=== PATIENT | female | born 1990 | race Caucasian/White ===

== ENCOUNTER 2016-08-02 11:05 | Emergency (ER) | payer BC ==
[2016-08-02 12:03] VITALS: BP 117/75
[2016-08-02 15:17] LABS: EBV Response YES
[2016-08-02 18:21] LABS: Hematocrit 40 % (35-47); Hemoglobin 13.2 g/dl (12.0-16.0); Mean Corpuscular HGB Conc 33 g/dl (31-36); Mean Corpuscular Hemoglobin 30 pg (27-31); Mean Corpuscular Volume 89 fL (80-97); Mean Platelet Volume 9 um3 (7.4-10.4); Red Blood Count 4.45 10^6/ul (4.0-5.4); Red Cell Distribution Width 12 % (10.5-15); White Blood Count 4.9 10^3/ul (3.5-10.8)
[2016-08-02 18:26] LABS: Manual Entry Verification MD; Mono Internal Control QC Line Present
[2016-08-02 18:39] LABS: Amylase 57 U/L (29-103); Anion Gap 8 mmol/L (2-11); Blood Urea Nitrogen 12 mg/dL (6-24); C Reactive Protein < 1.00 mg/L (< 5.00); CO2 Carbon Dioxide 25 mmol/L (22-32); Calcium 9.7 mg/dL (8.6-10.3); Chloride 105 mmol/L (101-111); EGFR African American 122.1 (>60); EGFR Non-African American 94.9 (>60); Glucose 91 mg/dL (70-100); Lipase 19 U/L (11.0-82.0); Potassium 4.2 mmol/L (3.5-5.0); Sodium 138 mmol/L (133-145)
[2016-08-02 19:42] LABS: Erythrocyte Sed Rate 9 mm/Hr (0-14)
[2016-08-04 15:50] LABS: EBV Capsid Ag IgG Ab Positive (Negative); EBV Capsid Ag IgM Ab Negative (Negative)
--- NOTE | 2016-08-10 14:58 | UC ---
shikha Santiago Timothy, scribed for Manuela Tineo DO on 08/02/16 at 1217 . FLU HPI - HPI Summary HPI Summary: Shefali Willson is a 25 yo female presenting to [facility] with 7/10 DE ANDA, nausea, vomiting 1x 07/31/16, diarrhea last night, 6/10 intermittent abd pain that can get up to an 8/10, fatigue, and mylagia with neck pain for the past two weeks, worse in the past week. She also c/o subjective fever, night diaphoresis, and poor sleep. Pt is able to tolerate fluids, but has some sore throat at night, which usually resolves through the day. She states that she has lost her appetite recently, but eating does not aggravate or alleviate her abd pain. She states she also feels as though she can't catch her breath sometimes. She also has noticed an increase in frequency of the feeling of needing to urinate, but no change in her actual urination. Pt states she has bipolar disorder, and states that she has had periodic manic episodes marked by increased energy throughout the course of her illness, followed by a crash of overwhelming fatigue. She denies cough, CP. She states that she normally gets sick around the time of her menstrual period, but this is worse than usual. Her MHx includes OCD, bipolar disorder, tobacco use. Her LNMP started 07/27/16. - History of Current Complaint Stated Complaint: NAUSEA HEADACHE FATIGUE Time Seen by Provider: 08/02/16 13:05 Hx Obtained From: Patient Hx Last Menstrual Period: 07/26/16 Onset/Duration: Gradual Onset, Lasting Days, Still Present Severity Currently: Moderate Severity Initially: Moderate Pain Intensity: 7 Pain Scale Used: 0-10 Numeric Associated Signs & Symptoms: Positive: Fever - subjective, Myalgia, Sore Throat , Headache, Diarrhea - Allergy/Home Medications Allergies/Adverse Reactions: Allergies Allergy/AdvReac Type Severity Reaction Status Date / Time No Known Allergies Allergy Verified 08/02/16 11:55 Home Medications: Home Medications Acetylcysteine (Nutrient) [Nac] 08/02/16 [History] PMH/Surg Hx/FS Hx/Imm Hx - Additional Past Medical History Additional PMH: PCOS Psychological History Of: Reports: Bipolar Disorder - OCD - Surgical History Surgical History: None - Family History Known Family History: Positive: Other - Hodgekin's lymphoma Negative: Cardiac Disease, Hypertension, Diabetes - Social History Alcohol Use: Occasionally Substance Use Type: None Smoking Status (MU): Light Every Day Tobacco Smoker Amount Used/How Often: 5 cig./day Have You Smoked in the Last Year: No Cessation Counseling: Patient Advised to Stop - Immunization History Most Recent Influenza Vaccination: 2011 Most Recent Tetanus Shot: UKN Most Recent Pneumonia Vaccination: NONE Review of Systems Constitutional: Fever - subjective, Fatigue, Other - poor sleep, periods of high "manic" energy Skin: Negative Eyes: Negative ENT: Sore Throat Respiratory: Shortness Of Breath Cardiovascular: Negative Gastrointestinal: Abdominal Pain, Vomiting - 1x, Diarrhea - 1x, Other - nasuea Genitourinary: Negative Motor: Negative Neurovascular: Negative Musculoskeletal: Myalgia Neurological: Headache Psychological: Negative All Other Systems Reviewed And Are Negative: Yes Physical Exam Triage Information Reviewed: Yes Appearance: No Pain Distress, Well-Nourished, Ill-Appearing Vital Signs: Initial Vital Signs Temp 98.5 F 08/02/16 11:56 Pulse 90 08/02/16 11:56 Resp 16 08/02/16 11:56 BP 117/75 08/02/16 11:56 Pulse Ox 100 08/02/16 11:56 Vital Signs Reviewed: Yes Eyes: Positive: Conjunctiva Clear. Negative: Discharge ENT: Positive: Hearing grossly normal. Negative: Muffled/hoarse voice Neck: Positive: Supple, Nontender Respiratory: Positive: Lungs clear, Normal breath sounds, No respiratory distress, No accessory muscle use Cardiovascular: Positive: RRR, No Murmur Abdomen Description: Positive: Soft. Negative: Nontender - diffuse, worse epigastric, Distended, Guarding Musculoskeletal Exam: Normal Neurological: Positive: Alert, Muscle Tone Normal Psychological Exam: Normal Psychological: Positive: Age Appropriate Behavior Skin Exam: Normal - warm, dry, normal color Re-Evaluation - Re-Evaluation First Eval Re-Evaluation Time: 14:17 Change: Unchanged Comment: Reviewed lab results with Pt. Pt is agreeable to current course of Tx. Flu Course/Dx - Course Course Of Treatment: Shefali Willson is a 25 yo female presenting to [facility] with 7/10 DE ANDA, nausea, diarrhea, fatigue, subjective fever, night diaphoresis, poor sleep, and mylagia for the past week. Recommended transfer to ed for eval of epigastric pain as pt on meds with pancreatitis as potential adverse effect. Pt will sign out AMA after having lab work drawn. Pt was counseled as to the risks of signing out AMA. - Differential Dx/Diagnosis Differential Diagnosis/HQI/PQRI: Other - uti, , pancreatitis Provider Diagnoses: epugastric pain Discharge - Discharge Plan Condition: Stable Disposition: ADMITTED TO [facility] Discharge Disposition Comment: sign out AMA Patient Education Materials: Fatigue (ED), Epigastric Pain (ED) Referrals: [facility] [Outside] Additional Instructions: YOU ARE LEAVING AGAINST MEDICAL ADVISE. WE HAVE RECOMMENDED TRANSFER TO THE ED FOR THOROUGH EVALUATION OF YOUR CHEST PAIN. YOU HAVE REFUSED. YOUR RISKS INCLUDE WORSENING PAIN, INFECTION, SEPSIS AND . IF YOU CHANGE YOUR MIND, YOU CAN STILL GO TO THE ED AT ANY TIME. PLEASE DONT HESITATE TO GO IF YOUR SYMPTOMS WORSEN OR NEW SYMPTOMS DEVELOP. Please follow up with the primary care physician provided regarding your visit to urgent care today. Return to urgent care or the emergency department with any new or recurring symptoms. The documentation as recorded by the shikha herrera Timothy accurately reflects the service I personally performed and the decisions made by , Manuela Tineo DO.
== END 2016-08-02 14:55 | disposition short-term general hospital (02) ==
LOC: UCEAST 11:05
DX: R10.13 Epigastric pain (principal); R50.9 Fever, unspecified; M79.1 Myalgia; J02.9 Acute pharyngitis, unspecified; R51 Headache; R19.7 Diarrhea, unspecified; F31.9 Bipolar disorder, unspecified; F42.9 Obsessive-compulsive disorder, unspecified; F17.210 Nicotine dependence, cigarettes, uncomplicated; Z32.02 Encounter for pregnancy test, result negative
CPT/HCPCS: 36415; 80048; 81003; 82150; 83690; 84702; 85025; 85652; 86140; 86308; 86618; 86664; 86665; 99212; G0463

== ENCOUNTER 2016-08-27 15:15 | Emergency (ER) | payer BC ==
[2016-08-27 15:24] VITALS: BP 118/61
--- NOTE | 2016-08-27 16:18 | UC ---
General HPI - HPI Summary HPI Summary: Started feeling poor about a month ago, feeling feverish with epigastric pain and fatigue. Blood tests 08/02/16 negative for current EBV/mono, Lyme; no derangement on CBC or CMP. Saw PCP for f/u and was rx omeprazole with relief of epigastric pain, but feels that her energy has not gotten better and still feels nausea without new vomiting. Fevers felt like they picked back up in the last week with general malaise, exhaustion, and joint aches. Has had a cough for "a while" and "it feels like I have lung pain in the front." Found small spot on R thigh that she noticed about a week ago, wonders if she was bitten by a tick. - History of Current Complaint Chief Complaint: Mohan Stated Complaint: BUG BITE Time Seen by Provider: 08/27/16 16:01 Hx Obtained From: Patient Onset/Duration: Gradual Onset, Lasting Weeks Timing: Constant Onset Severity: Mild Current Severity: Moderate Associated Signs & Symptoms: Positive: Cough, Chest Pain, Nausea, Vomiting - 1 month ago. Negative: Diarrhea, Dysuria, Melena - Allergy/Home Medications Allergies/Adverse Reactions: Allergies Allergy/AdvReac Type Severity Reaction Status Date / Time No Known Allergies Allergy Verified 08/02/16 11:55 Home Medications: Home Medications Omeprazole [Prilosec] 20 mg PO 08/27/16 [History] Zinc [Zinc Picolinate] 25 mg PO 08/27/16 [History] PMH/Surg Hx/FS Hx/Imm Hx Psychological History: Bipolar Disorder - Surgical History Surgical History: None - Family History Known Family History: Negative: Blood Disorder - Social History Occupation: Employed Full-time Alcohol Use: None Substance Use Type: None Smoking Status (MU): Light Every Day Tobacco Smoker Type: Cigarettes Amount Used/How Often: 5 cig./day Have You Smoked in the Last Year: No - Immunization History Most Recent Influenza Vaccination: 2011 Most Recent Tetanus Shot: UKN Most Recent Pneumonia Vaccination: NONE Review of Systems Constitutional: Fever, Chills, Fatigue Skin: Negative Eyes: Negative ENT: Negative Respiratory: Negative Cardiovascular: Negative Gastrointestinal: Vomiting Genitourinary: Negative Motor: Negative Neurovascular: Negative Musculoskeletal: Myalgia Neurological: Headache Psychological: Negative All Other Systems Reviewed And Are Negative: Yes Physical Exam Triage Information Reviewed: Yes Appearance: Well-Appearing, No Pain Distress, Well-Nourished Vital Signs: Initial Vital Signs Temp 101.5 F 08/27/16 15:19 Pulse 102 08/27/16 15:19 Resp 18 08/27/16 15:19 BP 118/61 08/27/16 15:19 Pulse Ox 100 08/27/16 15:19 Vital Signs Reviewed: Yes Eye Exam: Normal, Other - PERRL, EOM-I Eyes: Positive: Conjunctiva Clear ENT: Positive: Normal ENT inspection, Hearing grossly normal, Pharynx normal, TMs normal. Negative: Tonsillar swelling, Tonsillar exudate Dental Exam: Normal Neck exam: Normal Neck: Positive: Supple, Nontender, No Lymphadenopathy Respiratory Exam: Normal Respiratory: Positive: Chest non-tender, Lungs clear, Normal breath sounds, No respiratory distress, No accessory muscle use Cardiovascular: Positive: No Murmur, Tachycardia Abdominal Exam: Normal Abdomen Description: Positive: Nontender, No Organomegaly, Soft. Negative: CVA Tenderness (R), CVA Tenderness (L) Musculoskeletal Exam: Normal Musculoskeletal: Positive: Strength Intact, ROM Intact Neurological Exam: Normal Neurological: Positive: Alert Psychological Exam: Normal Skin Exam: Other - no redness or lesions noted Course/Dx - Differential Dx - Multi-Symptom Provider Diagnoses: fever. malaise Discharge - Discharge Plan Condition: Stable Disposition: HOME Patient Education Materials: Fever in Adults (ED) Referrals: Rose Galindo MD [Primary Care Provider] - 3 Days Additional Instructions: I have sent further lab work, but it is unclear what has been causing your symptoms. Try to monitor your temperature at home in order to look for patterns for when your fevers come and go. Please see your primary care provider this week to discuss further testing and possible treatment.
--- NOTE | 2016-08-27 17:06 | RAD ---
HISTORY: Fever, cough COMPARISONS: None VIEWS: 2: Frontal dual-energy and lateral views of the chest. FINDINGS: CARDIOMEDIASTINAL SILHOUETTE: The cardiomediastinal silhouette is normal. CLIFF: The cliff are normal. PLEURA: The costophrenic angles are sharp. No pleural abnormalities are noted. LUNG PARENCHYMA: The lungs are clear. ABDOMEN: The upper abdomen is clear. There is no subphrenic gas. BONES AND SOFT TISSUES: No bone or soft tissue abnormalities are noted. OTHER: None. IMPRESSION: NO ACTIVE CARDIOPULMONARY DISEASE.
== END 2016-08-27 17:35 | disposition home or self-care (01) ==
LOC: UCEAST 15:15
DX: R50.9 Fever, unspecified (principal); R53.83 Other fatigue; F17.210 Nicotine dependence, cigarettes, uncomplicated
CPT/HCPCS: 36415; 71020; 81003; 84702; 86618; 86803; 99211; G0463

== ENCOUNTER 2017-10-13 19:37 | Emergency (ER) | payer BC ==
[2017-10-13 19:47] VITALS: BP 102/60
--- NOTE | 2017-10-13 19:56 | UC ---
Skin Complaint HPI - HPI Summary HPI Summary: This is sharon Johnson Attshar documenting for attending Fnu MD Josef. Pt is a 26 y/o F presents to [facility] with concerns of left ear infection located on the L ear lobe. She uses guages in both her ears but started noticing redness and slight amount of discharge along with pain in the area locally . Assoc. Sx: redness, low-grade fever, ear drainage. Denies: CP. PMHx: Bipolar. She says that the lobe feels warm to the touch. Patient is year old , without any significant past medical history who present today with for past days. Denies any cough chest pain or shortness of breath . No diaphoresis. Denies any abdominal pain , nausea or vomiting , diarrhea or constipation. She has not tried any over the counter medication. - History of Current Complaint Chief Complaint: UCSkin Time Seen by Provider: 10/13/17 19:46 Stated Complaint: EAR LOBE INFLAMED Hx Obtained From: Patient Hx Last Menstrual Period: 07/27/16 Onset/Duration: Sudden Onset, Lasting Days, Still Present Timing: Constant Current Severity: Mild Pain Intensity: 3 Pain Scale Used: 0-10 Numeric Location: Ear (Left) - lobe Character: Swelling, Pain Associated Signs & Symptoms: Positive: Negative - CP, Fever - low grade, Drainage - puss, Tenderness. Negative: Chest Pain - Allergy/Home Medications Allergies/Adverse Reactions: Allergies Allergy/AdvReac Type Severity Reaction Status Date / Time No Known Allergies Allergy Verified 10/13/17 19:48 Home Medications: Home Medications [place] Carbonate [Lithobid] 900 mg PO 10/13/17 [History] QUEtiapine TAB* [Seroquel 100 MG *] 100 mg PO BEDTIME 10/13/17 [History Confirmed 10/13/17] Review of Systems Constitutional: Fever - low grade Skin: Rash - redness, skin discharge Eyes: Negative ENT: Negative, Ear Ache - L earlobe inflammation, Other Respiratory: Negative Cardiovascular: Negative - CP Gastrointestinal: Negative Genitourinary: Negative Motor: Negative Neurovascular: Negative Musculoskeletal: Negative Neurological: Negative Psychological: Negative Is Patient Immunocompromised?: No All Other Systems Reviewed And Are Negative: Yes PMH/Surg Hx/FS Hx/Imm Hx Previously Healthy: Yes Other Endocrine History: negative Other Cardiovascular History: Negative: CAD Other Respiratory History: negative Other GI/ History: negative Other Neurological History: negative Psychological History: Bipolar Disorder Other Psychological History: negative Other Cancer History: negative - Surgical History Surgical History: None - Family History Known Family History: Negative: Blood Disorder - Social History Occupation: Unemployed Lives: With Family Alcohol Use: None Substance Use Type: None Smoking Status (MU): Light Every Day Tobacco Smoker Type: Cigarettes Amount Used/How Often: 5 cig./day Have You Smoked in the Last Year: No - Immunization History Most Recent Influenza Vaccination: 2011 Most Recent Tetanus Shot: UKN Most Recent Pneumonia Vaccination: NONE Physical Exam - Summary Physical Exam Summary: Appearance: Well-Appearing, No Pain Distress, Well-Nourished Eyes: conjunctiva clear, no discharge ENT: Hearing grossly normal, no muffled/hoarse voice. L ear lobe is inflamed with honey-crusting at the site where the guage is kept in but no active discharge is noted. TM normal bilaterally. No pain with pressure on tragus or movement of pinna. Neck: Normal, Supple Respiratory/Lung Sounds: Lungs clear, Normal breath sounds, No respiratory distress, No accessory muscle use Cardiovascular: RRR, No murmur Abdomen: Nontender, Soft, no guarding, not distended Bowel Sounds: Present Musculoskeletal: Normal Neurological: Alert, muscle tone normal Psychiatric:Normal, age appropriate behavior Skin: Normal, Warm, Dry, Normal color Triage Information Reviewed: Yes Vital Signs: Initial Vital Signs Temp 99.4 F 10/13/17 19:41 Pulse 82 10/13/17 19:41 Resp 18 10/13/17 19:41 BP 102/60 10/13/17 19:41 Pulse Ox 100 10/13/17 19:41 Vital Signs Reviewed: Yes Course/Dx - Course Course Of Treatment: During the visit today, we discussed the findings and further plan. I will prescribe the medication to the pharmacy . Patient expressed understanding . - Diagnoses Provider Diagnoses: Impetigo Discharge - Sign-Out/Discharge Documenting (check all that apply): Patient Departure - Discharge Plan Condition: Stable Disposition: HOME Prescriptions: Cephalexin CAP* [Keflex CAP*] 500 mg PO TID 10 Days #30 cap Patient Education Materials: Impetigo (ED) Referrals: Rose Galindo MD [Primary Care Provider] - 7 Days Additional Instructions: Start taking the antibiotic . It has been prescribed to the pharmacy . Follow up with your primary care doctor in 1 week. Return to Urgent care / ER if symptoms get worse. - Billing Disposition and Condition Condition: STABLE Disposition: Home
[2017-10-13] MEDS ORDERED: Cephalexin CAP* 500 MG PO ONE (20:03)
== END 2017-10-13 20:19 | disposition home or self-care (01) ==
LOC: UCEAST 19:37
DX: L01.00 Impetigo, unspecified (principal); F17.210 Nicotine dependence, cigarettes, uncomplicated
CPT/HCPCS: 99212; A9270-GY; G0463

== ENCOUNTER 2018-02-20 18:01 | Emergency (ER) | payer BC ==
[2018-02-20 18:20] VITALS: BP 127/54
--- NOTE | 2018-02-20 19:15 | UC ---
Complaint Female HPI - HPI Summary HPI Summary: 27-year-old [facility] with a chief complaint of burning with urination and urinary hesitancy and frequency. This is been going on for about a week. She had been on control pills for a long time and she stopped that 2 weeks ago. She has some abnormal vaginal discharge and also some white plaques in her mouth since she stopped taking the pill. No fevers or chills no flank pain. She's been with same partner for 3 years she is not concerned about an STI. She has had yeast infections in the past and wonders if she may have a vaginal yeast infection and oral thrush. - History Of Current Complaint Chief Complaint: UCGU Stated Complaint: UTI Time Seen by Provider: 02/20/18 18:28 Hx Last Menstrual Period: 07/27/16 Pain Intensity: 3 - Allergies/Home Medications Allergies/Adverse Reactions: Allergies Allergy/AdvReac Type Severity Reaction Status Date / Time bruno Allergy Itching Verified 12/16/17 15:47 PMH/Surg Hx/FS Hx/Imm Hx Previously Healthy: Yes - Surgical History Surgical History: None Surgery Procedure, Year, and Place: DENIES - Family History Known Family History: Negative: Blood Disorder - Social History Alcohol Use: None Substance Use Type: None Smoking Status (MU): Light Every Day Tobacco Smoker Type: Cigarettes Amount Used/How Often: 5 cig./day Have You Smoked in the Last Year: No - Immunization History Most Recent Influenza Vaccination: 2011 Most Recent Tetanus Shot: UKN Most Recent Pneumonia Vaccination: NONE Review of Systems All Other Systems Reviewed And Are Negative: Yes Constitutional: Positive: Negative Skin: Positive: Negative Eyes: Positive: Negative ENT: Positive: Other - SEE HPI Respiratory: Positive: Negative Cardiovascular: Positive: Negative Gastrointestinal: Positive: Negative Genitourinary: Positive: Dysuria, Frequency, Urgency, Vaginal/Penile Discharge Motor: Positive: Negative Neurovascular: Positive: Negative Musculoskeletal: Positive: Negative Neurological: Positive: Negative Psychological: Positive: Negative Is Patient Immunocompromised?: No Physical Exam Triage Information Reviewed: Yes Appearance: Well-Appearing, No Pain Distress, Well-Nourished Vital Signs: Initial Vital Signs Temp 99.0 F 02/20/18 18:14 Pulse 99 02/20/18 18:14 Resp 18 02/20/18 18:14 BP 127/54 12/06/18 18:14 Pulse Ox 100 02/20/18 18:14 Vital Signs Reviewed: Yes Eye Exam: Normal Eyes: Positive: Conjunctiva Clear ENT: Positive: Pharynx normal, Other - WHITE [place]QUE ON TONGUE Neck exam: Normal Neck: Positive: Supple Respiratory: Positive: Lungs clear, Normal breath sounds, No respiratory distress Cardiovascular: Positive: RRR Abdomen Description: Positive: Soft, Other: - MILD SUPRAPUBIC TENDERNESS TO PALPATION. Negative: CVA Tenderness (R), CVA Tenderness (L) Musculoskeletal Exam: Normal Musculoskeletal: Positive: Strength Intact, ROM Intact Neurological Exam: Normal Neurological: Positive: Alert, Muscle Tone Normal Psychological Exam: Normal Psychological: Positive: Age Appropriate Behavior Skin Exam: Normal Complaint Female Dx - Course Course Of Treatment: We discussed the urine results. At this time we will treat for UTI with antibiotics. We'll also treat the role of thrush with nystatin. We'll also give a prescription for Diflucan to be used as needed for vaginal yeast. We discussed a pelvic exam for further evaluation and we decided on the above plan but she knows that if things get worse or she has any other concerns she needs to get rechecked. - Differential Dx/Diagnosis Provider Diagnosis: UTI (urinary tract infection), Thrush, oral Discharge - Sign-Out/Discharge Documenting (check all that apply): Patient Departure All imaging exams completed and their final reports reviewed: No Studies - Discharge Plan Condition: Stable Disposition: HOME Prescriptions: Fluconazole 150 MG TAB* [Diflucan 150 MG TAB*] 150 mg PO ONCE #2 tablet Nystatin SUSPENSION ORAL SYR* 500,000 units PO QID #200 ml Sulfamethox/Trimethoprim DS* [Bactrim DS 800/160 TAB*] 1 tab PO BID #14 tab Patient Education Materials: Urinary Tract Infection in Women (ED), Oral Candidiasis (ED) Referrals: Rose Galindo MD [Primary Care Provider] - Additional Instructions: FOLLOW UP WITH YOUR DOCTOR IF NOT COMPLETELY IMPROVED. GET RECHECKED FOR ANY WORSENING OF YOUR CONDITION OR QUESTIONS OR CONCERNS. - Billing Disposition and Condition Condition: STABLE Disposition: Home
--- NOTE | 2018-02-22 14:57 | UC ---
- Progress Note Progress Note: 02/22/2018 Urine culture positive for E. Coli. Pt Rx Bactrim PO which it covers for it. Culture sensitivity still pending. Elizabeth Rivera PA-C Course/Dx - Diagnoses Provider Diagnoses: UTI (urinary tract infection), Thrush, oral Discharge - Sign-Out/Discharge Documenting (check all that apply): Patient Departure - D/C home All imaging exams completed and their final reports reviewed: No Studies - Discharge Plan Condition: Stable Disposition: HOME Prescriptions: Fluconazole 150 MG TAB* [Diflucan 150 MG TAB*] 150 mg PO ONCE #2 tablet Nystatin SUSPENSION ORAL SYR* 500,000 units PO QID #200 ml Sulfamethox/Trimethoprim DS* [Bactrim DS 800/160 TAB*] 1 tab PO BID #14 tab Patient Education Materials: Urinary Tract Infection in Women (ED), Oral Candidiasis (ED) Referrals: Rose Galindo MD [Primary Care Provider] - Additional Instructions: FOLLOW UP WITH YOUR DOCTOR IF NOT COMPLETELY IMPROVED. GET RECHECKED FOR ANY WORSENING OF YOUR CONDITION OR QUESTIONS OR CONCERNS. - Billing Disposition and Condition Condition: STABLE Disposition: Home
== END 2018-02-20 19:30 | disposition home or self-care (01) ==
LOC: UCEAST 18:01
DX: N39.0 Urinary tract infection, site not specified (principal); B96.20 Unspecified Escherichia coli [E. coli] as the cause of diseases classified elsewhere; B37.0 Candidal stomatitis; F17.210 Nicotine dependence, cigarettes, uncomplicated
CPT/HCPCS: 81003; 84702; 87077; 87086; 87186; 99202; G0463

== ENCOUNTER 2018-03-08 14:55 | Emergency (ER) | payer BC ==
[2018-03-08 15:06] VITALS: BP 123/78
--- NOTE | 2018-03-08 15:18 | UC ---
FLU HPI - HPI Summary HPI Summary: 27-year-old female presents with one-week history of subjective fever, general malaise, body aches, nasal congestion, nasal drainage, sore throat, and cough. Associated with some mild nausea. Denies ear pain, dysphagia, chest pain, shortness of breath, abdominal pain, vomiting, or diarrhea. - History of Current Complaint Chief Complaint: UCRespiratory Stated Complaint: STUFFY NOSE FEVER ACHES Time Seen by Provider: 03/08/18 14:58 Hx Last Menstrual Period: December 2017 Pain Intensity: 6 - Allergy/Home Medications Allergies/Adverse Reactions: Allergies Allergy/AdvReac Type Severity Reaction Status Date / Time bruno Allergy Itching Verified 03/08/18 15:07 PMH/Surg Hx/FS Hx/Imm Hx Previously Healthy: Yes Psychological History: Bipolar Disorder - Surgical History Surgical History: None Surgery Procedure, Year, and Place: DENIES - Family History Known Family History: Negative: Blood Disorder - Social History Occupation: Employed Full-time Lives: Alone Alcohol Use: None Substance Use Type: Prescribed Smoking Status (MU): Light Every Day Tobacco Smoker Type: Cigarettes Amount Used/How Often: 5 cig./day Have You Smoked in the Last Year: No - Immunization History Most Recent Influenza Vaccination: 2011 Most Recent Tetanus Shot: [facility] Most Recent Pneumonia Vaccination: NONE Review of Systems All Other Systems Reviewed And Are Negative: Yes Constitutional: Positive: Fever, Fatigue Skin: Negative: Rash Eyes: Negative: Drainage, Eye Redness ENT: Positive: Sore Throat, Nasal Discharge, Sinus Congestion. Negative: Ear Ache, Sinus Pain/Tenderness Respiratory: Positive: Cough. Negative: Shortness Of Breath Cardiovascular: Negative: Palpitations, Chest Pain Gastrointestinal: Positive: Nausea. Negative: Abdominal Pain, Vomiting, Diarrhea Is Patient Immunocompromised?: No Physical Exam - Summary Physical Exam Summary: GENERAL APPEARANCE: Well developed, well nourished, alert and cooperative, and appears to be in no acute distress. EYES: Conjunctiva clear. No drainage. Vision is grossly intact. EARS: External auditory canals and tympanic membranes clear, hearing grossly intact. NOSE: Mild-moderate nasal congestion with mild mucosal erythema and edema. No nasal discharge. THROAT: Mild pharyngeal erythema with cobblestoning. Tonsils 1+ without swelling, exudate, or lesions. Oral cavity normal. Teeth and gingiva in good general condition. NECK: Neck supple, non-tender. Mild anterior cervical lymphadenopathy. CARDIAC: Normal S1 and S2. No S3, S4 or murmurs. Rhythm is regular. There is no peripheral edema, cyanosis or pallor. Extremities are warm and well perfused. Capillary refill is less than 2 seconds. LUNGS: Clear to auscultation and percussion without rales, rhonchi, wheezing or diminished breath sounds. ABDOMEN: Positive bowel sounds. Soft, nondistended, nontender. No guarding or rebound. No masses or hepatosplenomegally. MUSKULOSKELETAL: ROM intact to all extremities. No joint erythema or tenderness. Normal muscular development. Normal gait. SKIN: Skin normal color, texture and turgor with no lesions or eruptions. Triage Information Reviewed: Yes Vital Signs: Initial Vital Signs Temp 98.5 F 03/08/18 15:03 Pulse 91 03/08/18 15:03 Resp 18 03/08/18 15:03 BP 123/78 03/08/18 15:03 Pulse Ox 98 03/08/18 15:03 Vital Signs Reviewed: Yes Diagnostics - Laboratory Diagnostic Studies Completed/Ordered: Rapid flu negative Flu Course/Dx - Course Course Of Treatment: 27-year-old female presents with one-week history of subjective fever, general malaise, body aches, nasal congestion, nasal drainage , sore throat, and cough. Associated with some mild nausea. Denies ear pain, dysphagia, chest pain, shortness of breath, abdominal pain, vomiting, or diarrhea. Afebrile. Vital signs stable. Exam revealed some nasal congestion with mild mucosal erythema and edema, pharyngeal erythema with cobblestoning, no tonsillar swelling or exudate. Rapid influenza was negative. Recommend symptomatic treatment for upper respiratory infection. She is to follow-up with primary care provider in 7 days if symptoms persist. Warning symptoms were reviewed with the patient. Verbalizes understanding and agrees with plan of care. - Differential Dx/Diagnosis Differential Diagnosis/HQI/PQRI: Bronchitis, Influenza, Upper Respiratory Infection Provider Diagnosis: URI (upper respiratory infection) Discharge - Sign-Out/Discharge Documenting (check all that apply): Patient Departure All imaging exams completed and their final reports reviewed: No Studies - Discharge Plan Condition: Stable Disposition: HOME Prescriptions: Fluticasone NASAL SPRAY 50MCG* [Flonase NASAL SPRAY 50MCG*] 2 spray BOTH NARES DAILY #1 btl Patient Education Materials: Upper Respiratory Infection (ED) Referrals: Rose Galindo MD [Primary Care Provider] - 7 Days (If symptoms persist) Additional Instructions: Your history and exam are consistent with a viral upper respiratory infection. Viral infections do not respond to antibiotics and are limited to the treatment of symptoms. Viral infections typically run their course in 10-14 days. Get plenty of rest. Drink plenty of fluids to avoid dehydration especially if you are running any fever. Use a saline rinse kit such as Neti Pot or NeilMed at least twice a day to help thin secretions and promote drainage of the sinuses. Use fluticasone (Flonase) nasal spray 2 sprays each nostril once daily. Take over the counter acetaminophen (Tylenol) or ibuprofen (Advil, Motrin) according to directions as needed for pain or fever. Use an over the counter decongestant such as Sudafed according to directions for the nasal congestion. Use salt water gargles several times a day if you have a sore throat. You may also use Chloraseptic spray or Cepacol lonzenges according to directions which contain a numbing medication and can provide some temporary relief from your sore throat. Follow up with your primary care provider in 7 days if symptoms persist. Seek immediate medical attention in the emergency room if you have fever greater than 100.5 F despite taking acetaminophen or ibuprofen, have chest pain , difficulty breathing, are unable to swallow, or have any worsening of symptoms. - Billing Disposition and Condition Condition: STABLE Disposition: Home - Attestation Statements Provider Attestation: I was available for consult. This patient was seen by the AAYUSH. The patient was not presented to , seen by or examined by vt -Rufus Bahena MD
== END 2018-03-08 15:40 | disposition home or self-care (01) ==
LOC: UCEAST 14:55
DX: J06.9 Acute upper respiratory infection, unspecified (principal); F17.210 Nicotine dependence, cigarettes, uncomplicated; Z91.018 Allergy to other foods
CPT/HCPCS: 99212; G0463

== ENCOUNTER 2018-05-29 16:26 | Emergency (ER) | payer BC ==
--- OUTSIDE RECORDS SUMMARY | 2018-05-29 16:31 | XMS REPORT | Continuity of Care Document ---
:1990 External Reference #:[id number] Author Name Bnony Nicole, ALICIA Address [address] [facility] [place] [address] Care Team Providers Name Role Phone Rose Galindo M.D. 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 Primary Care Physician Unavailable Payers Date Identification Numbers Payment Provider Subscriber Effective: Policy Number: [id number] /BS Of ADEBAYO Puckett 2015 PayID: [id number] [place] [id number] Advance Directives Description No Information Available Problems Date Description Provider Status Onset: 02/28/2016 Bipolar disorder Rose Galindo M.D. 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 Recreational Drug Use Never Used Drugs Tobacco Use Start: Unknown End: Patient is a former smoker Quit 02/2017 Unknown Smoking Status Reviewed: 05/20/18 Patient is a former smoker Quit 02/2017 Allergies, Adverse Reactions, Alerts Date Description Reaction Status Severity Comments 02/28/2016 NKDA Active 05/20/2018 bruno Active Medications Medication Date Status Form Strength Qnty SIG Indications Ordering Provider Bactrim DS Active Tablets 800-160mg 6tabs 1 tablet N39.0 Bonny Maria L 019 by mouth Nicole, twice a 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 Seroquel Active Tablets 25mg 1-2 po qhs Unknown 000 Nac Active Capsules 1 po bid Unknown 000 Vitamin C Active Tablets 1 po qd Unknown 000 Zinc Active Tablets 100mg 1 po qd Unknown 000 [place] Active Capsules 900mg 1 by mouth Unknown Carbonate 000 once at night Vitamin D Active Tablets 1000Unit 1 by mouth Unknown 000 every day otc P5P Active daily Unknown 000 Augmentin Hx Tablets 500-125mg 30tabs 1 by mouth J01.90 Bonny Lisa 017 - three Nicole, times a TOLL BRIDGE OPERATOR 018 day Omeprazole Hx Capsules 40mg 30caps take one R10.9 Rose 017 - DR capsule by [place], mouth once M.D. 017 daily in the morning 30 minutes before meals [place] Hx Capsules 300mg 3 po qhs Unknown Carbonate 000 - 017 Immunizations CPT Code Status Date Vaccine Lot # [id number] Given 02/28/2016 Influenza Vac, Quadrivalent, Slit Virus, Im [id number] Vital Signs Date Vital Result Comment 05/20/2018 3:39pm BP Systolic 92 mmHg BP Diastolic 54 mmHg Heart Rate 84 /min Body Temperature 97.7 F Height 64.5 inches 5'4.50" Weight 119.00 lb BMI (Body Mass Index) 20.1 kg/m2 11/07/2017 5:49pm BP Systolic 100 mmHg BP Diastolic 60 mmHg Heart Rate 78 /min Body Temperature 100.3 F Respiratory Rate 16 /min O2 % BldC Oximetry 98 % Height 64.5 inches 5'4.50" Weight 116.00 lb BMI (Body Mass Index) 19.6 kg/m2 07/17/2017 7:16pm BP Systolic 102 mmHg BP Diastolic 50 mmHg Heart Rate 78 /min Body Temperature 98.7 F Respiratory Rate 16 /min Height 64.5 inches 5'4.50" Weight 114.50 lb BMI (Body Mass Index) 19.3 kg/m2 03/14/2017 4:02pm BP Systolic 112 mmHg BP Diastolic 68 mmHg Heart Rate 88 /min Body Temperature 98.9 F Height 64.5 inches 5'4.50" Weight 119.25 lb BMI (Body Mass Index) 20.2 kg/m2 01/03/2017 2:02pm BP Systolic 108 mmHg BP Diastolic 62 mmHg Heart Rate 104 /min Body Temperature 99.1 F Height 64.5 inches 5'4.50" Weight 119.50 lb BMI (Body Mass Index) 20.2 kg/m2 09/04/2016 9:31am BP Systolic 100 mmHg BP Diastolic 60 mmHg Heart Rate 80 /min Body Temperature 98.7 F Respiratory Rate 16 /min Height 64.5 inches 5'4.50" Weight 124.12 lb BMI (Body Mass Index) 21.0 kg/m2 08/03/2016 3:33pm BP Systolic 114 mmHg BP Diastolic 68 mmHg Heart Rate 104 /min Body Temperature 98.8 F Height 64.5 inches 5'4.50" Weight 120.00 lb BMI (Body Mass Index) 20.3 kg/m2 05/19/2016 9:34am BP Systolic 114 mmHg BP Diastolic 60 mmHg Heart Rate 78 /min Body Temperature 98.1 F Respiratory Rate 16 /min Height 64.5 inches 5'4.50" Weight 124.50 lb BMI (Body Mass Index) 21.0 kg/m2 02/28/2016 3:11pm BP Systolic 100 mmHg BP Diastolic 60 mmHg Heart Rate 72 /min Body Temperature 98.1 F Height 64.5 inches 5'4.50" Weight 127.00 lb BMI (Body Mass Index) 21.5 kg/m2 Results Test Date Facility Test Result H/L Range Note Rapid Influenza A & 03/08/2018 [facility] Influenza A NEGATIVE Negative 1 B Molecular Molecular Influenza B Molecular NEGATIVE Negative Urine Culture And 02/20/2018 [facility] Urine Culture SEE RESULT BELOW 2, 3 Sensitivities Laboratory test 02/20/2018 [facility] Poc , Negative Negative 4 finding Urine Poc Urinalysis 02/20/2018 [facility] Poc Glucose, Negative Negative Urine Poc Bilirubin, Urine Negative Negative Poc Ketone, Urine Negative Negative Poc Specific [place], Urine 1.025 N 1.010-1.030 Poc Blood, Urine 3+ Abnormal Negative Poc pH, Urine 5.5 N 5-9 Poc Protein, Urine 1+ Abnormal Negative Poc Urobilinogen, Urine 0.2 Negative Poc Nitrite, Urine Negative Negative Poc Leukocytes, Urine 3+ Abnormal Negative Poc Color, Urine Yellow Poc Clarity, Urine Clear 5 CBC Electronic Fma 11/08/2017 Emanuel Margarita (a) WBC 5.5 x10^3/UL 4.0- 10.0 RBC 4.21 x10^6/UL 3.93-6.00 HGB 12.9 g/dL 12.0-17.0 HCT 39 % 35-50 MCV 92.9 fL 80.0-95.0 MCH 30.6 pg 25.6-32.2 MCHC 33.0 g/dL 32.2-36.0 RDW-CV 11.7 % 11.6-14.4 PLT 244 x10^3/UL 163-400 MPV 10.2 fL 9.4-12.4 Mary# 3.41 x10^3/UL 1.56-6.13 Lymph# 1.52 x10^3/UL 1.18-3.74 Pike# 0.36 x10^3/UL 0.24-0.82 Eos # 0.2 x10^3/UL 0.0-0.5 Baso # 0.02 x10^3/UL 0.01-0.08 Mary% 62.0 % 34.0-70.0 Lymph % 27.7 % 20.0-52.0 Pike% 6.6 % 5.0-12.0 Eos% 3.1 % 0.7-7.0 Baso% 0.4 % 0.1-1.2 Laboratory test 11/08/2017 [facility] Monospot negative finding (607)- - (Fma/Centrex) Lyme Western Blot 11/08/2017 [facility] Lyme Disease IgG Ab Negative Negative WB Lyme Disease IgG Bands Present p41 kDa Lyme Disease IgM Ab WB Negative Negative Lyme Disease IgM Bands Present No bands detecte <SEE NOTE> kDa 6 Lyme Disease Interpretation See Comment 7 Comprehensive Metabolic 11/08/2017 Emanuel Margarita (a) Sodium 142 mEq/L 134-149 Prof Potassium 4.1 mEq/L 3.6-5.5 Chloride 107 mEq/L 94-112 Carbon Dioxide 26 mEq/L 21-32 Glucose 101 mg/dL 70-105 BUN 6 mg/dL 6-26 Creatinine 0.7 mg/dL 0.6-1.4 BUN/Creat Ratio 8.6 CALC 8.0-36.0 Calcium 9.6 mg/dL 8.6-10.2 Total Protein 6.9 g/dL 6.4-8.3 Albumin 4.6 g/dL 3.8-5.5 Globulin 2.3 g/dL 2.0-4.8 A/G Ratio 2.0 CALC 0.6-2.3 Alk. Phosphatase 37 U/L 30-110 Alt (SGPT) 11 U/L 7-35 Ast (Sgot) 12 U/L 5-34 Total Bilirubin 0.3 mg/dL 0.2-1.3 GFR Non- >60 ml/min/1.73m^ >=60 GFR >60 ml/min/1.73m^ >=60 Laboratory test 11/08/2017 [facility] Ebv Early Antigen Negative Negative 8 finding Ua - Non Micro 11/07/2017 [facility] Appearance clear (a) (607)- - Color yellow Glucose, Urine (a/CMC/CTX) neg Bilirubin neg Ketones neg SP Grav 1.020 Blood neg PH 7.0 Protein neg Urobil 0.2 Nitrite neg Leukocytes ([facility]/Centrex) neg Influenza A&B-[facility] 11/07/2017 [facility] Influenza A neg (607)- - Influenza B neg Laboratory test finding 11/07/2017 [facility] Quickstrep neg Negative (607)- - Urine ([facility]) 11/07/2017 [facility] SP Grav 1.020 (607)- - Urine, (a/CMC/CTX) negative Influenza A&B-[facility] 01/03/2017 [facility] Influenza A negative (607)- - Influenza B negative Ua - Non Micro ([facility]) 09/04/2016 [facility] Appearance clear (607)- - Color yellow Glucose, Urine (a/CMC/CTX) neg Bilirubin neg Ketones neg SP Grav 1.015 Blood neg PH 7.5 Protein neg Urobil 0.2 Nitrite neg Leukocytes ([facility]rex) neg Laboratory test 08/27/2016 [facility] Lyme Disease Negative N Negative 9 finding Serology Laboratory test 08/27/2016 [facility] Hepatitis C Nonreactive N Nonreactive 10 , 11 finding Antibody HIV 1 2 Antibody Nonreactive N Nonreactive 12 Laboratory test finding 08/27/2016 [facility] Poc , Urine Negative N Negative 13 Poc Urinalysis 08/27/2016 [facility] Poc Glucose, Urine Negative N Negative Poc Bilirubin, Urine Negative N Negative Poc Ketone, Urine Negative N Negative Poc Specific [place], Urine <=1.005 Low 1.010-1.030 Poc Blood, Urine Negative N Negative Poc pH, Urine 6.0 N 5-9 Poc Protein, Urine Negative N Negative Poc Urobilinogen, Urine 0.2 N Negative Poc Nitrite, Urine Negative N Negative Poc Leukocytes, Urine Trace Abnormal Negative Poc Color, Urine Yellow N Poc Clarity, Urine Clear N 14 Basic Metabolic Panel 08/02/2016 [facility] Sodium 138 mmol/L N 133-145 Potassium 4.2 mmol/L N 3.5-5.0 Chloride 105 mmol/L N 101-111 Co2 Carbon Dioxide 25 mmol/L N 22-32 Anion Gap 8 mmol/L N 2-11 Glucose 91 mg/dL N 70-100 Blood Urea Nitrogen 12 mg/dL N 6-24 Creatinine 0.75 mg/dL N 0.51-0.95 BUN/Creatinine Ratio 16.0 N 8-20 Calcium 9.7 mg/dL N 8.6-10.3 Egfr Non- 94.9 N >60 Egfr 122.1 N >60 15 Laboratory test finding 08/02/2016 [facility] Lyme Disease Negative N Negative 16 Serology Robert Miramontes Comprehensive 08/02/2016 [facility] Ebv Capsid Ag IgG Ab Positive N Negative Ebv Capsid Ag IgM Ab Negative N Negative Robert-Miramontes Nuclear Antigen Positive N Negative Robert-Miramontes Virus Interp See Comment N 17 Laboratory test finding 08/02/2016 [facility] Monospot Negative N Negative 18 Erythrocyte Sed Rate 9 mm/Hr N 0-14 19 CBC Auto Diff 08/02/2016 [facility] White Blood Count 4.9 10^3/uL N 3.5-10.8 Red Blood Count 4.45 10^6/uL N 4.0-5.4 Hemoglobin 13.2 g/dL N 12.0-16.0 Hematocrit 40 % N 35-47 Mean Corpuscular Volume 89 fL N 80-97 Mean Corpuscular Hemoglobin 30 pg N 27-31 Mean Corpuscular HGB Conc 33 g/dL N 31-36 Red Cell Distribution Width 12 % N 10.5-15 Platelet Count 254 10^3/uL N 150-450 Mean Platelet Volume 9 um3 N 7.4-10.4 Abs Neutrophils 2.7 10^3/uL N 1.5-7.7 Abs Lymphocytes 1.6 10^3/uL N 1.0-4.8 Abs Monocytes 0.3 10^3/uL N 0-0.8 Abs Eosinophils 0.2 10^3/uL N 0-0.6 Abs Basophils 0 10^3/uL N 0-0.2 Abs Nucleated RBC 0 10^3/uL N Granulocyte % 55.7 % N 38-83 Lymphocyte % 33.0 % N 25-47 Monocyte % 6.9 % N 1-9 Eosinophil % 3.4 % N 0-6 Basophil % 1.0 % N 0-2 Nucleated Red Blood Cells % 0 N Laboratory test finding 08/02/2016 [facility] Amylase 57 U/L N 29-103 Lipase 19 U/L N 11.0-82.0 C Reactive Protein < 1.00 mg/L N < 5.00 20 Complete Blood Count 05/07/2016 Adelfo Avila ([facility]) WBC 7.2 x10^3/UL 3.6-9.6 RBC 4.12 x10^6/UL 3.90-5.70 HGB 12.7 g/dL 12.1-17.2 HCT 38 % 36-50 MCV 91.0 fL 82.2-97.4 MCH 30.8 pg 27.6-33.3 MCHC 33.8 g/dL 33.0-35.5 RDW 13.3 % 11.6-13.7 PLT 265 x10^3/UL 150-400 MPV 7.3 fL Low 7.4-10.4 Gran # 4.7 x10^3/UL 1.5-7.2 Lymph# 2.2 x10^3/UL 0.7-4.9 Pike# 0.3 x10^3/UL 0.1-0.9 Gran % 63.2 % 42.2-75.2 Lymph % 31.4 % 20.5-51.1 Pike% 5.4 % 1.7-9.3 Comprehensive Metabolic 05/07/2016 Adelfo Avila ([facility]) Sodium 141 mEq/L 134-149 Prof Potassium 4.1 mEq/L 3.6-5.5 Chloride 106 mEq/L 94-112 Carbon Dioxide 21 mEq/L 21-32 Glucose 88 mg/dL 70-105 BUN 10 mg/dL 6-26 Creatinine 0.8 mg/dL 0.6-1.4 BUN/Creat Ratio 12.5 CALC 8.0-36.0 Calcium 9.5 mg/dL 8.6-10.2 Total Protein 7.3 g/dL 6.4-8.3 Albumin 4.6 g/dL 3.8-5.5 Globulin 2.7 g/dL 2.0-4.8 A/G Ratio 1.7 CALC 0.6-2.3 Alk. Phosphatase 40 U/L 30-110 Alt (SGPT) 13 U/L 7-35 Ast (Sgot) 16 U/L 5-34 Total Bilirubin 0.5 mg/dL 0.2-1.3 GFR Non- >60 ml/min/1.73m^ >=60 GFR >60 ml/min/1.73m^ >=60 Lipid Profile 05/07/2016 Adelfo Avila (a) Cholesterol 131 mg/dL 120- 200 Triglycerides 60 mg/dL 30-200 HDL Cholesterol 67 mg/dL 30-85 LDL (Calculated) 52 CALC 0-129 VLDL Cholesterol 12 mg/dL 0-50 HDL Risk Factor 2.0 CALC 0.0-4.4 Laboratory test 05/07/2016 Adelfo Avila (a) TSH 4.58 mIU/L 0.50- 6.00 finding Hepatitis Panel, 05/07/2016 [facility] Hep A Ab, Negative Negative 21 Acute [address] [facility] [place] [address] (925)- - HBsAg Screen Negative Negative Hep B Core Ab, IgM Negative Negative Hep C Virus Ab <0.1 s/coratio 0.0-0.9 22 Laboratory test 05/07/2016 [facility] RPR Non Reactive Non Reactive finding [address] [place] [address] (903)- - HIV 1/O/2 Ag/AB 05/07/2016 [facility] HIV Screen 4th Non Reactive Non Reactive Prelim [address] [facility] Generation [place] [address] wRfx Sup (433)- - Vaginitis Plus 02/28/2016 [facility] Atopobium Low - 0 23 Nus[address] [facility] [place] [address] (021)- - Bvab 2 Low - 0 Score Megasphaera 1 Low - 0 Score 24 Va albicans, Peggy Negative Negative Va glabrata, Peggy Negative Negative 25 Trich vag by Peggy Negative Negative Chlamydia trachomatis, Peggy Negative Negative Neisseria gonorrhoeae, Peggy Negative Negative Age 1202/28/2016 [facility] Age 21-25 [address] [place] [address] (448)- - Diagn See Comment: 26 Adeq See Comment: 27 [email or web address] See Comment: 28 Perfor See Comment: 29 Comm . Note See Comment: 30 Iglbp See Comment: 31 Reflex See Comment: 32 Chlamydia, Nuc. Acid Amp Negative Negative Gonococcus, Nuc. Acid Amp Negative Negative Laboratory test 02/28/2016 [facility] PDF [id number] SEE IMAGE finding [address] [place] [address] (471)- - 1 Senior [employer] Net Developer: [id number] SEE RESULT BELOW Name: THEODORA PUCKETT : [address]: Pankaj Olivera MD Acct: [id number] Unit: [id number] AGE: 27 Location: [facility] Re02/20/18 SEX: F Status: DEP ER SPEC: [id number] JESE: 02/20/[address] [facility] [address]: Pankaj Olivera MD REQ: [id number] RECD: 02/21/18-1027 STATUS: JO ANN CAREY DR: Rose Galindo MD _ SOURCE: URINE SPDESC: ORDERED: Urine Culture COMMENTS: [id number] Procedure Result Reported Site Urine Culture Final 02/23/18- 0710 ML Organism 1 ESCHERICHIA COLI Duff Count 75-100,000 (Many) CFU/ML 1. ESCHERICHIA COLI M.I.C. RX --------- ------ Ampicillin <=2 S Cefazolin <=4 S Cefepime <=1 S Ceftriaxone <=1 S Ciprofloxacin <=0.25 S Gentamicin <=1 S Levofloxacin <=0.12 S Meropenem <=0.25 S Nitrofurantoin <=16 S Tetracycline <=1 S Pipercillin/Tazobactam <=4 S Trimethoprim/Sulfamethoxazole <=20 S Amoxicillin/Clavulanic Acid <=2 S Aztreonam <=1 S Contact the Microbiology Department for any additional antibiotic reporting. * ML - Main Lab . END OF REPORT DEPARTMENT OF PATHOLOGY, [address] [place] [address] Richar Arguello M.D. Director [facility] # [id number] 4 Senior [employer] Net Developer: [id number] Test Disclaimer: Positive bacteria, red blood cells, white blood cells, early , low specific gravity, and other factors may cause false positive or negative results. It is recommended to retest unexpected results within 24 to 72 hours with a serum test when applicable. If is still suspected, please repeat test after 48 to 72 hours. 5 Senior [employer] Net Developer: [id number] 6 No bands detected 7 Specific serologic response to B. burgdorferi infection is not detected, but cannot rule out early infection during which low or undetectable antibody levels to B. burgdorferi may be present. If clinically indicated, a new serum specimen should be submitted in 7-14 days. ADDITIONAL INFORMATION Per CDC criteria, the Lyme IgG Immunoblot is interpreted as positive if IgG-class antibodies are detected to >=5 B. burgdorferi proteins, and the Lyme IgM Immunoblot is interpreted as positive if IgM-class antibodies are detected to >=2 B. burgdorferi proteins. Immunoblot patterns not meeting these criteria should not be interpreted as positive. Epitopes from certain B. burgdorferi proteins (e.g., p41) are conserved across other bacteria, which may lead to the detection of IgM- and/or IgG-class antibodies on the Lyme disease immunoblots in patients without Lyme disease. Immunoblot should only be ordered on specimens that are positive or equivocal by a FDA-licensed Lyme disease antibody screening test (e.g., EIA). Results of the Lyme IgM immunoblot should not be considered in patients with >=30 days of symptoms. Test Performed by: [facility] [place] [address] 8 Test Performed by: [facility] - [address] [address] 9 Serologic response to B. burgdorferi infection is not detected, but cannot rule out early infection during which low or undetectable antibody levels to B. burgdorferi may be present. If clinically indicated, a new serum specimen should be submitted in 7-14 days. Test Performed by: [address] [address] 10 [id number] 12 It is recognized that currently available assays for the detection of antibodies to HIV-1 and/or HIV-2 may not detect all infected individuals. HIV antibodies may be undetectable in some stages of the infection and in some clinical conditions. The performance of this assay has not been established for populations of infants or children. Assayed by Chemiluminescence Microparticle Immunoassay on the Siemens Advia Centaur CP. Values obtained with different methods or kits cannot be used interchangeably.The diagnostic specificity of the ADVIA Centaur 1/O/2 Enhanced assay in the low risk population was 99.90% (6052/6058) with a 95% confidence interval of 99.78 to 99.96%. 13 Senior [employer] Net Developer: [id number] If is still suspected, please repeat test after 48 to 72 hours. 14 Senior [employer] Net Developer: [id number] 15 Because ethnic data is not always readily available, this report includes an eGFR for both -Americans and non- Americans. The National Kidney Disease Education Program (NKDEP) does not endorse the use of the MDRD equation for patients that are not between the ages of 18 and 70, are , have extremes of body size, muscle mass, or nutritional status, or are non- or non-. According to the National Kidney Foundation, irrespective of diagnosis, the stage of the disease is based on the level of kidney function: Stage Description GFR(mL/min/1.73 m(2)) 1 Kidney damage with normal or decreased GFR 90 2 Kidney damage with mild decrease in GFR 60-89 3 Moderate decrease in GFR 30-59 4 Severe decrease in GFR 15-29 5 Kidney failure <15 (or dialysis) 16 Serologic response to B. burgdorferi infection is not detected, but cannot rule out early infection during which low or undetectable antibody levels to B. burgdorferi may be present. If clinically indicated, a new serum specimen should be submitted in 7-14 days. Test Performed by: [facility] [place] [address] [address] 17 RESULT: Results suggest past infection. ADDITIONAL INFORMATION In most populations, at least 90% of the adult population will have been infected with EBV sometime in the past and therefore, will be positive for anti-VCA/IgG and anti- EBNA. Antibodies to EBNA develop 6-8 weeks after primary infection and remain present for life. Presence of VCA/ IgM antibodies indicates recent primary infection with EBV. Test Performed by: [address] [address] 18 Would you like an EBV if Monospot is Negative?: Y 19 Would you like an EBV if Monospot is Negative?: Y 20 Acute inflammation: >10.00 21 2SST 22 Negative: < 0.8 Indeterminate: 0.8 - 0.9 Positive: > 0.9 The CDC recommends that a positive HCV antibody result be followed up with a HCV Nucleic Acid Amplification test (389510). 23 1 aptima 24 Calculate total score by adding the 3 individual bacterial vaginosis (BV) marker scores together. Total score is interpreted as follows: Total score 0-1: Indicates the absence of BV. Total score 2: Indeterminate for BV. Additional clinical data should be evaluated to establish a diagnosis. Total score 3-6: Indicates the presence of BV. This test was developed and its performance characteristics determined by [facility]. It has not been cleared or approved by the Food and Drug Administration. The FDA has determined that such clearance or approval is not necessary. 25 This test was developed and its performance characteristics determined by [facility]. It has not been cleared or approved by the Food and Drug Administration. The FDA has determined that such clearance or approval is not necessary. 26 NEGATIVE FOR INTRAEPITHELIAL LESION AND MALIGNANCY. 27 Satisfactory for evaluation. Endocervical and/or squamous metaplastic cells (endocervical component) are present. 28 Z12.4 29 Koby Swan, Supervisor Soldering (ASCP) 30 The Pap smear is a screening test designed to aid in the detection of premalignant and malignant conditions of the uterine cervix. It is not a diagnostic procedure and should not be used as the sole means of detecting cervical cancer. Both false-positive and false-negative reports do occur. 31 This liquid based ThinPrep(R) pap test was screened with the use of an image guided system. 32 The HPV DNA reflex criteria were not met with this specimen result therefore, no HPV testing was performed. Procedures Date Code Description Status 11/07/2017 94874 Pulse Oximetry Completed Encounters Type Date Location Provider Dx Diagnosis Office Visit 05/20/2018 [facility] Bonny Lisa N39.0 Urinary tract 3:45p ALICIA Nicole infection, site not specified Office Visit 11/07/2017 Main Office Lencho Bravo Darlow, R50.9 Fever, unspecified 5:50p M.D. 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 R51 Headache Office Visit 03/14/2017 4:00p [facility] Bonny Lisa J01.90 Acute sinusitis, Nicole, TOLL BRIDGE OPERATOR unspecified Office Visit 01/03/2017 2:00p [facility] Bonny Lisa R50.9 Fever, Nicole, TOLL BRIDGE OPERATOR unspecified H92.02 Otalgia, left ear Z71.6 Tobacco abuse counseling E28.2 Polycystic ovarian syndrome F31.9 Bipolar disorder, unspecified F17.210 Nicotine dependence, cigarettes, uncomplicated Office Visit 09/04/2016 9:30a [facility] Laura R10.9 Unspecified Nelson, HEAD CHEF abdominal pain F31.9 Bipolar disorder, unspecified H92.02 Otalgia, left ear Office Visit 08/03/2016 3:30p [facility] Rose Galindo, R10.9 Unspecified M.D. abdominal pain F31.9 Bipolar disorder, unspecified R53.83 Other fatigue Office Visit 05/19/2016 9:30a Main Office Mayra Palm, F31.9 Bipolar disorder, HEAD CHEF unspecified Office Visit 02/28/2016 3:00p Main Office Rose Galindo, Z00.00 Encntr for general M.D. adult medical exam w/o abnormal findings F31.9 Bipolar disorder, unspecified Z11.3 Encntr screen for infections w sexl mode of transmiss Z23 Encounter for immunization Plan of Treatment 05/20/2018 - Bonny Nicole, NPN39.0 Urinary tract infection, site not specifiedNew Medication:Bactrim DS 800-160 mg - 1 tablet by mouth twice a dayDiflucan 200 mg - one tablet my mouth once, if not improved repeat in 2 days.New Labs:Ua - Micro ([facility]), Ordered: 05/20/18Urine Culture & Sensitivity , Ordered: 05/20/18Comments:~U_Supportive Care~u_: Drink lots of fluidswear cotton underweardo not soak in hot tubs/ bath tubs urinate after sexual intercourse If you are experiencing pain with urination: Azo Urinary Pain Relief can help relieve some symptoms. Beware it causes your urine to turn orange and may stain some of yourunderwear. Return if symptoms worsen or fail to improve. try the AZO probiotics for womenAllComments:~B_~U_Medication Management~b_~u_ Patient Understands medications he 's taking? Yes No Are there Barriers to Adherence? Yes No Has the patient been asked about herbal supplements and therapies, and OTC meds? Yes No ~B_~U_Care Plan~b_~u_1. Patient has been queried about patient's goals/preferences and functional/lifestyle goals at relevant visits. If relevant, describe: na2. Treatment goals as explained to the patient: above3. Are there barriers to meeting treatment goals? Yes No If Yes, please describe:4. Self- Management goals as described to the patient:Yes NoAs always, we strongly encourage a healthy diet and making physical activity a part of your every day life. If you have questions about how or where to start, please contact the office.Follow up:Please schedule a full annual visit at your earliest convenience
[2018-05-29 16:50] VITALS: BP 126/69
--- NOTE | 2018-05-29 17:00 | UC ---
Throat Pain/Nasal Candido HPI - HPI Summary HPI Summary: Nasal congestion, fever, fatigue and nasea for a few days. exposed to flu at work. feeling run down. last menses in 03/2018 but reports irregular periods. nothing makes it worse/better. - History of Current Complaint Chief Complaint: UCGeneralIllness Stated Complaint: FLU SYMPTOMS Time Seen by Provider: 05/29/18 16:29 Hx Obtained From: Patient Hx Last Menstrual Period: march 2018 Pain Intensity: 0 Pain Scale Used: 0-10 Numeric - Allergies/Home Medications Allergies/Adverse Reactions: Allergies Allergy/AdvReac Type Severity Reaction Status Date / Time bruno Allergy Itching Verified 05/29/18 16:50 Home Medications: Home Medications Cholecalciferol TAB* [Vitamin D TAB*] 1,000 unit PO DAILY 05/29/18 [History Confirmed 05/29/18] Vitamin B Complex [Super B-50 Complex] 1 each PO DAILY 05/29/18 [History Confirmed 05/29/18] Zinc 50 mg PO DAILY 05/29/18 [History Confirmed 05/29/18] PMH/Surg Hx/FS Hx/Imm Hx Previously Healthy: Yes - Surgical History Surgical History: None Surgery Procedure, Year, and Place: DENIES - Family History Known Family History: Negative: Blood Disorder - Social History Alcohol Use: None Substance Use Type: None Smoking Status (MU): Light Every Day Tobacco Smoker Type: Cigarettes Amount Used/How Often: 5 cig./day Have You Smoked in the Last Year: No - Immunization History Most Recent Influenza Vaccination: 2011 Most Recent Tetanus Shot: UKN Most Recent Pneumonia Vaccination: NONE Review of Systems All Other Systems Reviewed And Are Negative: Yes Constitutional: Positive: Fever, Fatigue ENT: Positive: Sinus Congestion, Sinus Pain/Tenderness Respiratory: Negative: Shortness Of Breath, Cough Cardiovascular: Negative: Chest Pain Gastrointestinal: Positive: Nausea. Negative: Vomiting, Diarrhea Motor: Negative: Weakness Neurological: Negative: Headache, Weakness Physical Exam Triage Information Reviewed: Yes Appearance: Well-Appearing Vital Signs: Initial Vital Signs Temp 99.4 F 05/29/18 16:48 Pulse 100 05/29/18 16:48 Resp 18 05/29/18 16:48 BP 126/69 05/29/18 16:48 Pulse Ox 100 05/29/18 16:48 Vital Signs Reviewed: Yes Eyes: Positive: Conjunctiva Clear ENT: Positive: Pharynx normal, TMs normal Neck: Positive: Supple, Nontender, No Lymphadenopathy. Negative: Nuchal Rigidity Respiratory Exam: Normal Cardiovascular Exam: Normal Neurological: Positive: Alert Skin: Negative: Rashes Throat Pain/Nasal Course/Dx - Course Course Of Treatment: flu-like illness; acute. Has been exposed to flu at her job. rapid flu neg. today. Urine hcg negative today, she reports irregular menses. Vitals good. we discussed viral etiology , that it is self-limiting and comfort measures for symptoms. - Differential Dx/Diagnosis Provider Diagnosis: Flu-like symptoms Discharge - Sign-Out/Discharge Documenting (check all that apply): Patient Departure All imaging exams completed and their final reports reviewed: No Studies - Discharge Plan Condition: Good Disposition: HOME Patient Education Materials: Viral Syndrome (ED) Referrals: Rose Galindo MD [Primary Care Provider] - Additional Instructions: if not improving please follow up with your main doctor. - Billing Disposition and Condition Condition: GOOD Disposition: Home
[2018-05-29 17:04] LABS: Influenza A Molecular NEGATIVE (Negative); Influenza B Molecular NEGATIVE (Negative)
== END 2018-05-29 17:45 | disposition home or self-care (01) ==
LOC: UCEAST 16:26
DX: R09.81 Nasal congestion (principal); R50.9 Fever, unspecified; R53.83 Other fatigue; R11.0 Nausea; F17.210 Nicotine dependence, cigarettes, uncomplicated; Z91.018 Allergy to other foods
CPT/HCPCS: 84702; 99211; G0463

== ENCOUNTER 2018-08-23 18:27 | Emergency (ER) | payer BC ==
--- OUTSIDE RECORDS SUMMARY | 2018-08-23 18:32 | XMS REPORT | Continuity of Care Document ---
:1990 External Reference #:[id number] Author Name Virgilio Vanegas MD Address [address] [place] [address] Care Team Providers Name Role Phone Rsoe Galindo M.D. Care Team Information Administration Professional Unavailable Rose Galindo M.D. Primary Care Physician Unavailable Payers Date Identification Numbers Payment Provider Subscriber Effective: Policy Number: [id number] [place] Theodora Puckett 2015 PayID: [id number] [address] [place] [id number] Advance Directives Description No Information Available Problems Active Problems Provider Date Bipolar disorder Rose Galindo M.D. Onset: 02/28/2016 Family History Date Family Member(s) Observation Comments [...] Never Used Drugs Tobacco Use Start: Unknown Light tobacco smoker (10 or fewer cigarettes/day) Smoking Status Reviewed: 08/04/18 Light tobacco smoker (10 or fewer cigarettes/day) Allergies, Adverse Reactions, Alerts Active Allergies Reaction Severity Comments Date NKDA 02/28/2016 bruno 05/20/2018 Medications Active Medications SIG Qnty Indications Ordering Provider Date Work Note was seen in office Virgilio Silva 08/04/2018 today. recommend MD Guilherme remain out of work. return date: 08/07/18. Seroquel 1-2 po qhs Unknown 25mg Tablets Nac 1 po bid Unknown Capsules Vitamin C 1 po qd Unknown Tablets Zinc 1 po qd Unknown 100mg Tablets Honeygo Carbonate 1 by mouth once at Unknown 900mg night Capsules Vitamin D 1 by mouth every Unknown 1000Unit day otc Tablets P5P daily Unknown History Medications Bactrim DS 1 tablet by mouth 6tabs N39.0 Bonny Lisa 05/20/2018 - twice a day ALICIA Nicole 06/06/2018 800-160mg Tablets Diflucan one tablet my 2tabs N39.0 Bonny Lisa 05/20/2018 - 200mg mouth once, if ALICIA Nicole 06/06/2018 Tablets not improved repeat in 2 days. Augmentin 1 by mouth three 30tabs J01.90 Bonny Lisa 03/14/2017 - 500-125mg times a day ALICIA Nicole 07/17/2017 Tablets Omeprazole take one capsule 30caps R10.9 Rose Galindo, 08/03/2016 - 40mg by mouth once M.D. 01/02/[address] daily in the morning 30 minutes before meals Honeygo Carbonate 3 po qhs Unknown - 05/19/2016 300mg Capsules Immunizations CPT Code Status Date Vaccine Lot # [id number] Given 02/28/2016 Influenza Vac, Quadrivalent, Slit Virus, Im [id number] Vital Signs Date Vital Result Comment 08/04/2018 4:08pm BP Systolic 98 mmHg BP Diastolic 60 mmHg Heart Rate 92 /min Body Temperature 100.0 F Respiratory Rate 16 /min Height 64.5 inches 5'4.50" Weight 118.00 lb BMI (Body Mass Index) 19.9 kg/m2 06/06/2018 3:19pm BP Systolic 104 mmHg BP Diastolic 60 mmHg Heart Rate 88 /min Body Temperature 99.2 F Height 64.5 inches 5'4.50" Weight 117.00 lb BMI (Body Mass Index) 19.8 kg/m2 05/20/2018 3:39pm BP Systolic 92 mmHg BP [...] Date Facility Test Result H/L Range Note Laboratory test 05/29/2018 [facility] Poc , Negative Negative 1 finding Urine Rapid Influenza A & 05/29/2018 [facility] Influenza A NEGATIVE Negative 2 B Molecular Molecular Influenza B Molecular NEGATIVE Negative Ua - Micro (a) 05/20/2018 [facility] Appearance Clear (607)- - Color Yellow Glucose, Urine (Fma/CMC/CTX) Negative Bilirubin Negative Ketones Negative SP Grav 1.010 Blood Negative PH 7.0 Protein Negative Urobil 0.2 Nitrite Negative Leukocytes (Fma/CMC/Centrex) Negative Hyaline - /Lpf Granular - /Lpf WBC (Fma,Centrex) 1-2 # RBC - Mucus (Fma/CBC/Centrex) - /Lpf Epith Occas. /Lpf # Bacteria Trace /Hpf # Amorphous (Fma/CMC/Centrex) - /Lpf Crystals, Fluid (Fma/CMC/CTX) - Z#Comments - Laboratory test 05/20/2018 [facility] Urine Culture negative finding (607)- - ([facility]) Rapid Influenza A 03/08/2018 [facility] Influenza A NEGATIVE Negative 3 & B Molecular Molecular Influenza B Molecular NEGATIVE Negative Urine Culture And 02/20/2018 [facility] Urine Culture SEE RESULT BELOW 4, 5 Sensitivities Laboratory test 02/20/2018 [facility] Poc , Negative Negative 6 finding Urine Poc Urinalysis 02/20/2018 [facility] Poc Glucose, Negative Negative Urine Poc Bilirubin, Urine Negative Negative Poc Ketone, Urine Negative Negative Poc Specific [place], Urine 1.025 N 1.010-1.030 Poc Blood, Urine 3+ Abnormal Negative Poc pH, Urine 5.5 N 5-9 Poc Protein, Urine 1+ Abnormal Negative Poc Urobilinogen, Urine 0.2 Negative Poc Nitrite, Urine Negative Negative Poc Leukocytes, Urine 3+ Abnormal Negative Poc Color, Urine Yellow Poc Clarity, Urine Clear 7 CBC Electronic a 11/08/2017 [facility]) WBC 5.5 x10^3/UL 4.0- 10.0 RBC 4.21 x10^6/UL 3.93-6.00 HGB 12.9 g/dL 12.0-17.0 HCT 39 % 35-50 MCV 92.9 fL 80.0-95.0 MCH 30.6 pg 25.6-32.2 MCHC 33.0 g/dL 32.2-36.0 RDW-CV 11.7 % 11.6-14.4 PLT 244 x10^3/UL 163-400 MPV 10.2 fL 9.4-12.4 Mary# 3.41 x10^3/UL 1.56-6.13 Lymph# 1.52 x10^3/UL 1.18-3.74 Erie# 0.36 x10^3/UL 0.24-0.82 Eos # 0.2 x10^3/UL 0.0-0.5 Baso # 0.02 x10^3/UL 0.01-0.08 Mary% 62.0 % 34.0-70.0 Lymph % 27.7 % 20.0-52.0 Erie% 6.6 % 5.0-12.0 Eos% 3.1 % 0.7-7.0 Baso% 0.4 % 0.1-1.2 Laboratory test 11/08/2017 [facility] Monospot negative finding (607)- - (Fma/Centrex) Lyme Western Blot 11/08/2017 [facility] Lyme Disease IgG Ab Negative Negative WB Lyme Disease IgG Bands Present p41 kDa Lyme Disease IgM Ab WB Negative Negative Lyme Disease IgM Bands Present No bands detecte <SEE NOTE> kDa 8 Lyme Disease Interpretation See Comment 9 Comprehensive Metabolic 11/08/2017 [facility](fma) Sodium 142 mEq/L 134-149 Prof Potassium 4.1 [...] GFR >60 ml/min/1.73m^ >=60 Laboratory test 11/08/2017 [facility] Ebv Early Antigen Negative Negative 10 finding Ua - Non Micro 11/07/2017 [facility] Appearance clear (a) (607)- - Color yellow Glucose, Urine (Fma/CMC/CTX) neg Bilirubin neg Ketones neg SP Grav 1.020 Blood neg PH 7.0 Protein neg Urobil 0.2 Nitrite neg Leukocytes (a/[facility]) neg Influenza A&B-a 11/07/2017 [facility] Influenza A neg (607)- - Influenza B neg Laboratory test finding 11/07/2017 [facility] Quickstrep neg Negative (607)- - Urine (a) 11/07/2017 [facility] SP Grav 1.020 (607)- - Urine, (a/CMC/CTX) negative Influenza A&B-a 01/03/2017 [facility] Influenza A negative (607)- - Influenza B negative Ua - Non Micro (a) 09/04/2016 [facility] Appearance clear (607)- - Color yellow Glucose, Urine (Fma/CMC/CTX) neg Bilirubin neg Ketones neg SP Grav 1.015 Blood neg PH 7.5 Protein neg Urobil 0.2 Nitrite neg Leukocytes (a/[facility]) neg Laboratory test finding 08/27/2016 [facility] Lyme Disease Serology Negative N Negative 11 Laboratory test finding 08/27/2016 [facility] Poc , Urine Negative N Negative 12 Poc Urinalysis 08/27/2016 [facility] Poc Glucose, Urine Negative N Negative Poc Bilirubin, Urine Negative N Negative Poc Ketone, Urine Negative N Negative Poc Specific [place], Urine <=1.005 Low 1.010-1.030 Poc Blood, Urine Negative N Negative Poc pH, Urine 6.0 N 5-9 Poc Protein, Urine Negative N Negative Poc Urobilinogen, Urine 0.2 N Negative Poc Nitrite, Urine Negative N Negative Poc Leukocytes, Urine Trace Abnormal Negative Poc Color, Urine Yellow N Poc Clarity, Urine Clear N 13 Laboratory test 08/27/2016 [facility] Hepatitis C Nonreactive N Nonreactive 14 , 15 finding Antibody HIV 1 2 Antibody Nonreactive N Nonreactive 16 CBC Auto Diff 08/02/2016 [facility] White Blood Count 4.9 10^3/uL N 3.5-10.8 [...] % 0 N Laboratory test finding 08/02/2016 [facility] Monospot Negative N Negative 17 Erythrocyte Sed Rate 9 mm/Hr N 0-14 18 Basic Metabolic Panel 08/02/2016 [facility] Sodium 138 mmol/L N 133-145 Potassium 4.2 [...] 94.9 N >60 Egfr 122.1 N >60 19 Robert Miramontes Comprehensive 08/02/2016 [facility] Ebv Capsid Ag IgG Ab Positive N Negative Ebv Capsid Ag IgM Ab Negative N Negative Robert-Miramontes Nuclear Antigen Positive N Negative Robert-Miramontes Virus Interp See Comment N 20 Laboratory test finding 08/02/2016 [facility] Amylase 57 U/L N 29-103 Lipase 19 U/L N 11.0-82.0 C Reactive Protein < 1.00 mg/L N < 5.00 21 Laboratory test 08/02/2016 [facility] Lyme Disease Negative N Negative 22 finding Serology Complete Blood 05/07/2016 Ad[facility] Margarita(fma) WBC 7.2 x10^3/UL 3.6-9.6 Count RBC 4.12 x10^6/UL 3.90-5.70 HGB 12.7 g/dL 12.1-17.2 HCT 38 % 36-50 MCV 91.0 fL 82.2-97.4 MCH 30.8 pg 27.6-33.3 MCHC 33.8 g/dL 33.0-35.5 RDW 13.3 % 11.6-13.7 PLT 265 x10^3/UL 150-400 MPV 7.3 fL Low 7.4-10.4 Gran # 4.7 x10^3/UL 1.5-7.2 Lymph# 2.2 x10^3/UL 0.7-4.9 Erie# 0.3 x10^3/UL 0.1-0.9 Gran % 63.2 % 42.2-75.2 Lymph % 31.4 % 20.5-51.1 Erie% 5.4 % 1.7-9.3 Comprehensive Metabolic 05/07/2016 [facility]arita(fma) Sodium 141 mEq/L 134-149 Prof Potassium 4.1 [...] >60 ml/min/1.73m^ >=60 Lipid Profile 05/07/2016 [facility]ita(fma) Cholesterol 131 mg/dL 120- 200 Triglycerides 60 mg/dL 30-200 HDL Cholesterol 67 mg/dL 30-85 LDL (Calculated) 52 CALC 0-129 VLDL Cholesterol 12 mg/dL 0-50 HDL Risk Factor 2.0 CALC 0.0-4.4 Laboratory test 05/07/2016 [facility] Avila(a) TSH 4.58 mIU/L 0.50-6.00 finding Hepatitis Panel, 05/07/2016 [facility] Hep A Ab, Negative Negative 23 Acute [address] [facility] [place] [address] (609)- - HBsAg Screen Negative Negative Hep B Core Ab, IgM Negative Negative Hep C Virus Ab <0.1 s/coratio 0.0-0.9 24 Laboratory test 05/07/2016 [facility] RPR Non Reactive Non Reactive finding [address] [place] [address] (602)- - HIV 1/O/2 Ag/AB 05/07/2016 [facility] HIV Screen 4th Non Reactive Non Reactive Prelim [address] [facility] Generation wRfx W/[place] [address] Sup (607)- - Age 1202/28/2016 [facility] Age 21-25 [address] [place] [address] (605)- - Diagn See Comment: 25 Adeq See Comment: 26 [email or web address] See Comment: 27 Perfor See Comment: 28 Comm . Note See Comment: 29 Iglbp See Comment: 30 Reflex See Comment: 31 Chlamydia, Nuc. Acid Amp Negative Negative Gonococcus, Nuc. Acid Amp Negative Negative Laboratory test 02/28/2016 [facility] PDF [id number] SEE IMAGE finding [address] [place] [address] (60)- - Vaginitis Plus 02/28/2016 [facility] Atopobium vaginae Low - 0 32 Nuswab [address] [facility] [place] [address] (60)- - Bvab 2 Low - 0 Score Megasphaera 1 Low - 0 Score 33 Va albicans, Peggy Negative Negative Va glabrata, Peggy Negative Negative 34 Trich vag by Peggy Negative Negative Chlamydia trachomatis, Peggy Negative Negative Neisseria gonorrhoeae, Peggy Negative Negative 1 Sales And Marketing Intern: [id number] Test Disclaimer: Positive bacteria, red blood cells, white blood cells, early , low specific gravity, and other factors may cause false positive or negative results. It is recommended to retest unexpected results within 24 to 72 hours with a serum test when applicable. If is still suspected, please repeat test after 48 to 72 hours. 2 Sales And Marketing Intern: [id number] 3 Sales And Marketing Intern: [id number] 4 [id number] 5 SEE RESULT BELOW Name: THEODORA PUCKETT : [address]: Pankaj Olivera MD Acct: [id number] Unit: [id number] AGE: 27 Location: [facility] Re02/20/18 SEX: F Status: DEP ER SPEC: [id number] JESE: 02/20/[address] [facility] [address]: Pankaj Olivera MD REQ: [id number] RECD: 02/21/18 STATUS: JO ANN CAREY DR: Rose Galindo MD _ SOURCE: URINE [facility]: ORDERED: Urine Culture COMMENTS: [id number] Procedure Result Reported Site Urine Culture Final 02/23/18- 0710 ML Organism 1 ESCHERICHIA COLI [place] Count 75-100,000 (Many) CFU/ML 1. ESCHERICHIA COLI [...] . END OF REPORT DEPARTMENT OF PATHOLOGY, [address] [place] [address] Richar Arguello M.D. Director [facility] # [id number] 6 Sales And Marketing Intern: [id number] Test Disclaimer: Positive bacteria, red blood cells, white blood cells, early , low specific gravity, and other factors may cause false positive or negative results. It is recommended to retest unexpected results within 24 to 72 hours with a serum test when applicable. If is still suspected, please repeat test after 48 to 72 hours. 7 Sales And Marketing Intern: [id number] 8 No bands detected 9 Specific serologic response to B. burgdorferi infection [...] >=30 days of symptoms. Test Performed by: [place] [address] 10 Test Performed by: [place] [address] 11 Serologic response to B. burgdorferi infection is not detected, but cannot rule out early infection during which low or undetectable antibody levels to B. burgdorferi may be present. If clinically indicated, a new serum specimen should be submitted in 7-14 days. Test Performed by: [facility] [address] [place] [address] 12 Sales And Marketing Intern: [id number] If is still suspected, please repeat test after 48 to 72 hours. 13 Sales And Marketing Intern: [id number] 14 [id number] 15 [id number] 16 It is recognized that currently available assays [...] 95% confidence interval of 99.78 to 99.96%. 17 Would you like an EBV if Monospot is Negative?: Y 18 Would you like an EBV if Monospot is Negative?: Y 19 Because ethnic data is not always readily [...] 15-29 5 Kidney failure <15 (or dialysis) 20 RESULT: Results suggest past infection. ADDITIONAL INFORMATION [...] primary infection with EBV. Test Performed by: [address] [address] 21 Acute inflammation: >10.00 22 Serologic response to B. burgdorferi infection is not detected, but cannot rule out early infection during which low or undetectable antibody levels to B. burgdorferi may be present. If clinically indicated, a new serum specimen should be submitted in 7-14 days. Test Performed by: [address] [address] 23 2SST 24 Negative: < 0.8 Indeterminate: 0.8 - 0.9 Positive: > 0.9 The CDC recommends that a positive HCV antibody result be followed up with a HCV Nucleic Acid Amplification test (035478). 25 NEGATIVE FOR INTRAEPITHELIAL LESION AND MALIGNANCY. 26 Satisfactory for evaluation. Endocervical and/or squamous metaplastic cells (endocervical component) are present. 27 Z12.4 28 Koby Swan, [place]ake[place] Line Tender (ASCP) 29 The Pap smear is a screening test designed to aid in the detection of premalignant and malignant conditions of the uterine cervix. It is not a diagnostic procedure and should not be used as the sole means of detecting cervical cancer. Both false-positive and false-negative reports do occur. 30 This liquid based ThinPrep(R) pap test was screened with the use of an image guided system. 31 The HPV DNA reflex criteria were not met with this specimen result therefore, no HPV testing was performed. 32 1 aptima 33 Calculate total score by adding the 3 individual bacterial vaginosis (BV) marker scores together. Total score is interpreted as follows: Total score 0-1: Indicates the absence of BV. Total score 2: Indeterminate for BV. Additional clinical data should be evaluated to establish a diagnosis. Total score 3-6: Indicates the presence of BV. This test was developed and its performance characteristics determined by [facility]. It has not been cleared or approved by the Food and Drug Administration. The FDA has determined that such clearance or approval is not necessary. 34 This test was developed and its performance characteristics determined by [facility]. It has not been cleared or approved by the Food and Drug Administration. The FDA has determined that such clearance or approval is not necessary. Procedures Date Code Description Status 11/07/2017 60638 Pulse Oximetry Completed Encounters Type Date Location Provider Dx Diagnosis Office Visit 06/06/2018 [facility] Bonny Lisa Z77.21 Contact w and 3:00p ALICIA Nicole exposure to potentially hazardous body fluids F42.9 Obsessive-compulsive disorder, unspecified Office Visit 05/20/2018 3:45p 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 abdominal pain F31.9 Bipolar disorder, unspecified R53.83 Other fatigue Office Visit 05/19/2016 9:30a [facility] Office Mayra Palm, F31.9 Bipolar disorder, TITLE I ASSISTANT unspecified Office Visit 02/28/2016 3:00p [facility] Office Rose Galindo, Z00.00 Encntr for general M.D. adult medical exam w/o abnormal findings F31.9 Bipolar disorder, unspecified Z11.3 Encntr screen for infections w sexl mode of transmiss Z23 Encounter for immunization Plan of Treatment 08/04/2018 - Virgilio Vanegas, MDR50.9 Fever, unspecifiedNew Labs:CBC Electronic (Fma New), Ordered: 08/04/18Ua - Non Micro (Fma), Ordered: Mono Test W/RFX, Ordered: 08/04/18T4 Total W/RFX TSH, Ordered: 08/04/18C Reactive Protein, Ordered: 08/04/18Lyme Screen W/ Reflex To WB, Ordered: R51 NlnytikgB62.83 Other fatigueAllNew Medication:Work Note - was seen in office today. recommend remain out of work. return date: 08/07/18.Comments: Medication Management Patient Understands medications she's taking? Yes No Are there Barriers to Adherence? Yes No Has the patient been asked about herbal supplements and therapies, and OTC meds? Yes No
[2018-08-23 18:34] VITALS: BP 116/57
--- NOTE | 2018-08-23 19:44 | UC ---
Allergic Reaction HPI - HPI Summary HPI Summary: PATIENT WAS STARTED ON LAMOTRIGINE 25 MG ONCE DAILY 2 WEEKS AGO. TODAY SHE INCREASED HER DOSE TO 50 MG PRESCRIBED. STATES FOR A FEW DAYS SHE HAS NOTICED HER FOREHEAD ITCHING AND THAT YESTERDAY NOTICED SOME SMALL RED BUMPS ON HER ARMS AND REPORTS HER EARS WERE RED AND ITCHY AND SWOLLEN. SHE IS CONCERNED SHE IS REACTING TO THIS NEW MEDICATION. SHE DENIES ANY FEVER. NO NAUSEA/ VOMITING. NO RESPIRATORY DISTRESS. NO TONGUE OR LIP SWELLING. - History of Current Complaint Chief Complaint: [place]CS[place] Stated Complaint: RED,SWOLLEN EARS Time Seen by Provider: 08/23/18 19:00 Hx Obtained From: Patient Hx Last Menstrual Period: July 31 Onset/Duration: Sudden Onset, Lasting Days, Still Present Severity Initially: Mild Severity Currently: Moderate Pain Intensity: 0 Pain Scale Used: 0-10 Numeric Location: Diffuse Alleviating Factor(s): Nothing Associated Signs And Symptoms: Positive: Rash. Negative: Abdominal Pain, Chest Pain, Cough Wheezing, Difficulty Breathing, Hoarseness, Lightheadedness, Nausea , Throat Tightening - Allergies/Home Medications Allergies/Adverse Reactions: Allergies Allergy/AdvReac Type Severity Reaction Status Date / Time bruno Allergy Itching Verified 08/23/18 18:34 PMH/Surg Hx/FS Hx/Imm Hx Psychological History: Anxiety, Bipolar Disorder - Surgical History Surgical History: None Surgery Procedure, Year, and Place: DENIES - Family History Known Family History: Positive: Non-Contributory - Social History Alcohol Use: Rare Substance Use Type: None Smoking Status (MU): Light Every Day Tobacco Smoker Type: Cigarettes Amount Used/How Often: 5 cig./day Have You Smoked in the Last Year: No - Immunization History Most Recent Influenza Vaccination: 2011 Most Recent Tetanus Shot: [facility] Most Recent Pneumonia Vaccination: NONE Review of Systems All Other Systems Reviewed And Are Negative: Yes Constitutional: Positive: Negative Skin: Positive: Rash ENT: Positive: Negative Respiratory: Positive: Negative Cardiovascular: Positive: Negative Gastrointestinal: Positive: Negative Neurological: Positive: Negative Physical Exam Triage Information Reviewed: Yes Appearance: Well-Appearing, No Pain Distress, Well-Nourished Vital Signs: Initial Vital Signs Temp 100.5 F 08/23/18 18:31 Pulse 90 08/23/18 18:31 Resp 15 08/23/18 18:31 BP 116/57 08/23/18 18:31 Pulse Ox 100 08/23/18 18:31 Vital Signs Reviewed: Yes Eyes: Positive: Conjunctiva Clear ENT: Positive: Hearing grossly normal, Pharynx normal, Uvula midline - NO EDEMA , Other - BILATERAL AURICLES ERYTHEMATOUS AND SLIGHTLY EDEMATOUS Neck: Positive: Supple, Nontender, No Lymphadenopathy Respiratory Exam: Normal Cardiovascular Exam: Normal Abdomen Description: Positive: Soft Musculoskeletal: Positive: No Edema Neurological: Positive: Alert Skin: Positive: Rashes - DIFFUSE ERYTHEMATOUS MACULOPAPULAR RASH OVER ARMS, TRUNK, NECK AND CHIN Allergic Reaction Course/Dx - Course Course Of Treatment: PATIENT IS LIKELY SUFFERING FROM AN ALLERGIC REACTION TO LAMOTRIGINE. SHE HAS BEEN ON 25 MG FOR 2 WEEKS. INCREASED HER DOSE TO 50 MG TODAY. SHE HAS NO RESPIRATORY COMPROMISE OR ANGIOEDEMA. HAVE ADVISED HER TO STOP THE MEDICATION. NO NEED TO TAPER GIVEN LOW-DOSE FOR SHORT PERIOD OF TIME. SHE REPORTS UNPLEASANT REACTIONS TO BENADRYL IN THE PAST. SHE WILL TAKE AN OTC ANTIHISTAMINE SUCH CLARITIN, ZYRTEC OR EDDI ONCE DAILY. PEPCID DAILY WELL. PREDNISONE PRESCRIBED ALTHOUGH PATIENT STATES SHE WILL HOLD OFF ON THIS SHE IS CONCERNED THAT IT MAY TRIGGER MORE ANXIETY. ADVISED TO APPLY COOL COMPRESSES TO HER EARS. GO TO THE ER WITHOUT FAIL IF SYMPTOMS WORSEN. - Differential Dx/Diagnosis Provider Diagnosis: Allergic reaction caused by a drug Discharge - Sign-Out/Discharge Documenting (check all that apply): Patient Departure All imaging exams completed and their final reports reviewed: No Studies - Discharge Plan Condition: Stable Disposition: HOME Prescriptions: predniSONE TAB* [Deltasone 20 MG TAB*] 40 mg PO DAILY #10 tab Patient Education Materials: General Allergic Reaction (ED) Referrals: Rose Galindo MD [Primary Care Provider] - 3 Days Additional Instructions: USE DAILY HYPOALLERGENIC MOISTURIZING LOTION TAKE PREDNISONE DAILY PRESCRIBED AVOID HEAT AND HOT WATER TAKE OTC ANTIHISTAMINE DAILY (CLARITIN (LORATADINE), ZYRTEC (CETIRIZINE) OR EDDI (FEXOFENADINE) IN THE MORNING, 25-50MG BENADRYL AT NIGHT). 20-40MG PEPCID DAILY. DO NOT SCRATCH KEEP COOL, CLEAN AND DRY USE OTC TOPICAL HYDROCORTISONE SPARINGLY 2-3 TIMES DAILY ON ITCHY SPOTS. KEEP AWAY FROM MUCOUS MEMBRANES. GO TO THE ED WITHOUT FAIL IF YOU DEVELOP ANY RESPIRATORY INVOLVEMENT, TONGUE/ LIP SWELLING, FEVER, NAUSEA/VOMITING OR ANY OTHER CONCERNING SYMPTOMS. STOP THE LAMOTRIGINE AND FOLLOW-UP WITH YOUR PRESCRIBER FIRST THING SATURDAY. IF YOU HAVE RECURRENT SYMPTOMS CONSIDER EVAL BY AN MOSS GATHERER. [facility] Address: [facility] [address], [place] [address] [facility] [address] [place], [place] [address] [place], [place] [address] - Billing Disposition and Condition Condition: STABLE Disposition: Home
== END 2018-08-23 20:03 | disposition home or self-care (01) ==
LOC: UCEAST 18:27
DX: T42.6X5A Adverse effect of other antiepileptic and sedative-hypnotic drugs, initial encounter (principal); Y92.9 Unspecified place or not applicable; F17.210 Nicotine dependence, cigarettes, uncomplicated
CPT/HCPCS: 99212; G0463

== ENCOUNTER 2018-09-22 18:28 | Emergency (ER) | payer BC ==
--- OUTSIDE RECORDS SUMMARY | 2018-09-22 18:32 | XMS REPORT | Continuity of Care Document ---
:1990 External Reference #:[id number] Author Name Virgilio Vanegas MD Address [address] [place] [address] Care Team Providers Name Role Phone Rose Galindo M.D. Care Team Information Municipal Engineer Unavailable Rose Galindo M.D. Primary Care Physician Unavailable Payers Date Identification Numbers Payment Provider Subscriber Effective: Policy Number: [id number] /BS Of ADEBAYO Puckett 2015 PayID: [id number] [address] [address] [place] [address] Problems Active Problems Provider Date Bipolar disorder [...] Alerts Active Allergies Reaction Severity Comments Date bruno 05/20/2018 Lamictal Hives 08/25/2018 Inactive Allergies NKDA 02/28/2016 Medications Active Medications SIG Qnty Indications Ordering Provider Date Work Note was seen in office Virgilio Silva 08/04/2018 today. recommend MD Guilherme remain out of work. return date: 08/07/18. Seroquel 1-2 po qhs Unknown 25mg Tablets Nac 1 po bid Unknown Capsules Vitamin C 1 po qd Unknown Tablets Zinc 1 po qd Unknown 100mg Tablets [place] Carbonate 1 by mouth once at Unknown [...] in the morning 30 minutes before meals [place] Carbonate 3 po qhs Unknown - 05/19/2016 300mg Capsules Immunizations CPT Code Status Date Vaccine Lot # [id number] Given 02/28/2016 Influenza Vac, Quadrivalent, Slit Virus, Im [id number] Vital Signs Date Vital Result Comment 08/25/2018 4:44pm BP Systolic 90 mmHg BP Diastolic 52 mmHg Heart Rate 68 /min Body Temperature 100.8 F Respiratory Rate 12 /min Height 64.5 inches 5'4.50" Weight 121.00 lb BMI (Body Mass Index) 20.4 kg/m2 08/04/2018 4:08pm BP Systolic 98 mmHg BP [...] Date Facility Test Result H/L Range Note Heavy Metals 08/12/2018 [facility] Arsenic, Blood 5 ug/L 2-23 1, 2 Profile I, Blood [address] [place] [address] (607)- - Mercury, Blood None Detected ug/L 0.0-14.9 3 Lead, Blood None Detected g/dL 0-4 4 CBC Electronic Fma 08/04/2018 Adelfo Margarita(fma) WBC 8.3 x10^3/UL 4.0- 10.0 RBC 4.40 x10^6/UL 3.93-6.00 HGB 13.4 g/dL 12.0-17.0 HCT 41 % 35-50 MCV 93.9 fL 80.0-95.0 MCH 30.5 pg 25.6-32.2 MCHC 32.4 g/dL 32.2-36.0 RDW-CV 11.5 % Low 11.6-14.4 PLT 281 x10^3/UL 163-400 MPV 9.7 fL 9.4-12.4 Mary# 6.26 x10^3/UL High 1.56-6.13 Lymph# 1.34 x10^3/UL 1.18-3.74 Bourbon# 0.48 x10^3/UL 0.24-0.82 Eos # 0.2 x10^3/UL 0.0-0.5 Baso # 0.02 x10^3/UL 0.01-0.08 Mary% 75.8 % High 34.0-70.0 Lymph % 16.2 % Low 20.0-52.0 Bourbon% 5.8 % 5.0-12.0 Eos% 1.9 % 0.7-7.0 Baso% 0.2 % 0.1-1.2 Laboratory test finding 08/04/2018 Adelfo Margarita(fma) TSH 0.80 mIU/L 0.50-6.00 Free T4 0.85 ng/dL 0.75-1.54 Ua - Non Micro (Fma) 08/04/2018 [facility] Appearance Clear (607)- - Color Yellow Glucose, Urine (Fma/CMC/CTX) Negative Bilirubin Negative Ketones Negative SP Grav 1.020 Blood Negative PH 7.0 Protein Negative Urobil 0.2 Nitrite Negative Leukocytes (Fma/CMC/[facility]rex) Negative Laboratory test 08/04/2018 [facility] Monospot NEGATIVE finding (607)- - (a/[facility]) Laboratory test 08/04/2018 [facility] C Reactive Protein < 1.00 mg/L N <8.01 5 finding Lyme Screen W/ Reflex To WB Negative Negative 6 Laboratory test finding 05/29/2018 [facility] Poc , Urine Negative Negative 7 Rapid Influenza A & B 05/29/2018 [facility] Influenza A Molecular NEGATIVE Negative 8 Molecular Influenza B Molecular NEGATIVE Negative Ua - Micro (Fma) 05/20/2018 [facility] Appearance Clear (607)- - Color Yellow [...] (Fma/CMC/CTX) - Z#Comments - Laboratory test 05/20/2018 [facility] Urine Culture negative finding (607)- - (a/[facility]) Rapid Influenza A 03/08/2018 [facility] Influenza A NEGATIVE Negative 9 & B Molecular Molecular Influenza B Molecular NEGATIVE Negative Poc Urinalysis 02/20/2018 [facility] Poc Glucose, Urine Negative Negative Poc Bilirubin, Urine Negative Negative Poc Ketone, Urine Negative Negative Poc Specific [place], Urine 1.025 N 1.010-1.030 Poc Blood, Urine 3+ Abnormal Negative Poc pH, Urine 5.5 N 5-9 Poc Protein, Urine 1+ Abnormal Negative Poc Urobilinogen, Urine 0.2 Negative Poc Nitrite, Urine Negative Negative Poc Leukocytes, Urine 3+ Abnormal Negative Poc Color, Urine Yellow Poc Clarity, Urine Clear 10 Laboratory test 02/20/2018 [facility] Poc , Negative Negative 11 finding Urine Urine Culture And 02/20/2018 [facility] Urine Culture SEE RESULT 12, 13 Sensitivities BELOW Laboratory test 11/08/2017 [facility] Monospot negative finding (607)- - (Fma/[facility]) Lyme Western Blot 11/08/2017 [facility] Lyme Disease Negative Negative IgG Ab WB Lyme Disease IgG Bands Present p41 kDa Lyme Disease IgM Ab WB Negative Negative Lyme Disease IgM Bands Present No bands detecte <SEE NOTE> kDa 14 Lyme Disease Interpretation See Comment 15 Laboratory test 11/08/2017 [facility] Ebv Early Negative Negative 16 finding Antigen Comprehensive 11/08/2017 Emanuel Margarita(fma) Sodium 142 mEq/L 134-149 Metabolic Prof Potassium 4.1 mEq/L 3.6-5.5 Chloride 107 [...] >60 ml/min/1.73m^ >=60 GFR >60 ml/min/1.73m^ >=60 CBC Electronic Fma 11/08/2017 Emanuel Margarita(fma) WBC 5.5 x10^3/UL 4.0- 10.0 RBC 4.21 x10^6/UL 3.93-6.00 HGB 12.9 g/dL 12.0-17.0 HCT 39 % 35-50 MCV 92.9 fL 80.0-95.0 MCH 30.6 pg 25.6-32.2 MCHC 33.0 g/dL 32.2-36.0 RDW-CV 11.7 % 11.6-14.4 PLT 244 x10^3/UL 163-400 MPV 10.2 fL 9.4-12.4 Mary# 3.41 x10^3/UL 1.56-6.13 Lymph# 1.52 x10^3/UL 1.18-3.74 Bourbon# 0.36 x10^3/UL 0.24-0.82 Eos # 0.2 x10^3/UL 0.0-0.5 Baso # 0.02 x10^3/UL 0.01-0.08 Mary% 62.0 % 34.0-70.0 Lymph % 27.7 % 20.0-52.0 [place]% 6.6 % 5.0-12.0 Eos% 3.1 % 0.7-7.0 Baso% 0.4 % 0.1-1.2 Influenza A&B-[facility] 11/07/2017 [facility] Influenza A neg (607)- - Influenza B neg Laboratory test finding 11/07/2017 [facility] Quickstrep neg Negative (607)- - Urine (a) 11/07/2017 [facility] SP Grav 1.020 (607)- - Urine, (a/CMC/CTX) negative Ua - Non Micro (a) 11/07/2017 [facility] Appearance clear (607)- - Color yellow Glucose, Urine (a/CMC/CTX) neg Bilirubin neg Ketones neg SP Grav 1.020 Blood neg PH 7.0 Protein neg Urobil 0.2 Nitrite neg Leukocytes ([facility]) neg Influenza A&B-[facility] 01/03/2017 [facility] Influenza A negative (607)- - Influenza B negative Ua - Non Micro ([facility]) 09/04/2016 [facility] Appearance clear (607)- - Color yellow Glucose, Urine (a/CMC/CTX) neg Bilirubin neg Ketones neg SP Grav 1.015 Blood neg PH 7.5 Protein neg Urobil 0.2 Nitrite neg Leukocytes (a/[facility]) neg Laboratory test 08/27/2016 [facility] Lyme Disease Negative N Negative 17 finding Serology Laboratory test 08/27/2016 [facility] Hepatitis C Nonreactive N Nonreactive 18 , 19 finding Antibody HIV 1 2 Antibody Nonreactive N Nonreactive 20 Laboratory test finding 08/27/2016 [facility] Poc , Urine Negative N Negative 21 Poc Urinalysis 08/27/2016 [facility] Poc Glucose, Urine Negative N Negative Poc Bilirubin, Urine Negative N Negative Poc Ketone, Urine Negative N Negative Poc Specific [place], Urine <=1.005 Low 1.010-1.030 Poc Blood, Urine Negative N Negative Poc pH, Urine 6.0 N 5-9 Poc Protein, Urine Negative N Negative Poc Urobilinogen, Urine 0.2 N Negative Poc Nitrite, Urine Negative N Negative Poc Leukocytes, Urine Trace Abnormal Negative Poc Color, Urine Yellow N Poc Clarity, Urine Clear N 22 Laboratory test finding 08/02/2016 [facility] Lyme Disease Negative N Negative 23 Serology Robert Miramontes Comprehensive 08/02/2016 [facility] Ebv Capsid Ag IgG Ab Positive N Negative Ebv Capsid Ag IgM Ab Negative N Negative Robert-Miramnotes Nuclear Antigen Positive N Negative Robert-Miramontes Virus Interp See Comment N 24 Laboratory test finding 08/02/2016 [facility] Monospot Negative N Negative 25 Erythrocyte Sed Rate 9 mm/Hr N 0-14 26 CBC Auto Diff 08/02/2016 [facility] White Blood Count 4.9 10^3/uL N 3.5-10.8 [...] % 0 N Laboratory test finding 08/02/2016 [facility] Amylase 57 U/L N 29-103 Lipase 19 U/L N 11.0-82.0 C Reactive Protein < 1.00 mg/L N < 5.00 27 Basic Metabolic Panel 08/02/2016 [facility] Sodium 138 mmol/L N 133-145 Potassium 4.2 [...] 94.9 N >60 Egfr 122.1 N >60 28 Complete Blood Count 05/07/2016 Adelfo Avila([facility]) WBC 7.2 x10^3/UL 3.6 -9.6 RBC 4.12 x10^6/UL 3.90-5.70 HGB 12.7 g/dL 12.1-17.2 HCT 38 % 36-50 MCV 91.0 fL 82.2-97.4 MCH 30.8 pg 27.6-33.3 MCHC 33.8 g/dL 33.0-35.5 RDW 13.3 % 11.6-13.7 PLT 265 x10^3/UL 150-400 MPV 7.3 fL Low 7.4-10.4 Gran # 4.7 x10^3/UL 1.5-7.2 Lymph# 2.2 x10^3/UL 0.7-4.9 Bourbon# 0.3 x10^3/UL 0.1-0.9 Gran % 63.2 % 42.2-75.2 Lymph % 31.4 % 20.5-51.1 Bourbon% 5.4 % 1.7-9.3 Comprehensive Metabolic 05/07/2016 Adelfo Avila([facility]) Sodium 141 mEq/L 134-149 Prof Potassium 4.1 [...] GFR >60 ml/min/1.73m^ >=60 Lipid Profile 05/07/2016 Emanuel Margarita(fma) Cholesterol 131 mg/dL 120- 200 Triglycerides 60 mg/dL 30-200 HDL Cholesterol 67 mg/dL 30-85 LDL (Calculated) 52 CALC 0-129 VLDL Cholesterol 12 mg/dL 0-50 HDL Risk Factor 2.0 CALC 0.0-4.4 Laboratory test 05/07/2016 Emanuel Margarita(fma) TSH 4.58 mIU/L 0.50-6.00 finding Hepatitis Panel, 05/07/2016 [facility] Hep A Ab, Negative Negative 29 Acute [address] [facility] [place] [address] (215)- - HBsAg Screen Negative Negative Hep B Core Ab, IgM Negative Negative Hep C Virus Ab <0.1 s/coratio 0.0-0.9 30 Laboratory test 05/07/2016 [facility] RPR Non Reactive Non Reactive finding [address] [place] [address] (534)- - HIV 1/O/2 Ag/AB 05/07/2016 [facility] HIV Screen 4th Non Reactive Non Reactive Prelim [address] [place] [address] Generation W/[place] [address] wRfx Sup (711)- - Vaginitis Plus 02/28/2016 [facility] Atopobium Low - 0 [address] [place] [address] [place] [address] (010)- - Bvab 2 Low - 0 Score Megasphaera 1 Low - 0 Score 32 Va albicans, Peggy Negative Negative Va glabrata, Peggy Negative Negative 33 Trich vag by Peggy Negative Negative Chlamydia trachomatis, Peggy Negative Negative Neisseria gonorrhoeae, Peggy Negative Negative Age 1202/28/2016 [facility] Age 21-25 [address] [place] [address] (526)- - Diagn See Comment: 34 Adeq See Comment: 35 Cicd10 See Comment: 36 Perfor See Comment: 37 Comm . Note See Comment: 38 Iglbp See Comment: 39 Reflex See Comment: 40 Chlamydia, Nuc. Acid Amp Negative Negative Gonococcus, Nuc. Acid Amp Negative Negative Laboratory test 02/28/2016 [facility] PDF [id number] SEE IMAGE finding [address] [place] [address] (636)- - 1 3 royal blue EDTA tubes of whole blood 2 This test was developed and its performance characteristics determined by [facility]. It has not been cleared or approved by the Food and Drug Administration. Detection Limit=1 3 This test was developed and its performance characteristics determined by [facility]. It has not been cleared or approved by the Food and Drug Administration. Environmental Exposure: <15.0 Occupational Exposure: ZAIDA - Inorganic Mercury: 15.0 Detection Limit=1.0 4 Testing performed by Inductively coupled plasma/Mass Spectrometry. Environmental Exposure: WHO Recommendation <20 Occupational Exposure: OSHA Lead Std 40 ZAIDA 30 Detection Limit=1 This test was developed and its performance characteristics determined by [facility]. It has not been cleared or approved by the Food and Drug Administration. 5 [id number] 1 Gold Top SST 6 [id number] 1 Gold Top SST 7 Doctor Osteopathic: [id number] Test Disclaimer: Positive bacteria, red blood cells, white blood cells, early , low specific gravity, and other factors may cause false positive or negative results. It is recommended to retest unexpected results within 24 to 72 hours with a serum test when applicable. If is still suspected, please repeat test after 48 to 72 hours. 8 Doctor Osteopathic: [id number] 9 Doctor Osteopathic: [id number] 10 Doctor Osteopathic: [id number] 11 Doctor Osteopathic: [id number] Test Disclaimer: Positive bacteria, red blood cells, white blood cells, early , low specific gravity, and other factors may cause false positive or negative results. It is recommended to retest unexpected results within 24 to 72 hours with a serum test when applicable. If is still suspected, please repeat test after 48 to 72 hours. 12 [id number] 13 SEE RESULT BELOW Name: THEODORA PUCKETT : [address]: Pankaj Olivera MD Acct: [id number] Unit: [id number] AGE: 27 Location: [facility] Re02/20/18 SEX: F Status: DEP ER SPEC: [id number] JESE: 02/20/[address] [facility] [address]: Pankaj Olivera MD REQ: [id number] RECD: 02/21/18 STATUS: JO ANN CAREY DR: Rose Galindo MD _ SOURCE: URINE SPDESC: ORDERED: Urine Culture COMMENTS: [id number] Procedure Result Reported Site Urine Culture Final 02/23/18- 0710 ML Organism 1 ESCHERICHIA COLI [place] Count 75-100,000 (Many) CFU/ML 1. ESCHERICHIA COLI [...] . END OF REPORT DEPARTMENT OF PATHOLOGY, [address] [place] [address] Richar Arguello M.D. Director [facility] # [id number] 14 No bands detected 15 Specific serologic response to B. burgdorferi infection [...] >=30 days of symptoms. Test Performed by: [place] [address] 16 Test Performed by: [place] [address] 17 Serologic response to B. burgdorferi infection is not detected, but cannot rule out early infection during which low or undetectable antibody levels to B. burgdorferi may be present. If clinically indicated, a new serum specimen should be submitted in 7-14 days. Test Performed by: [address] [address] 18 [id number] 19 [id number] 20 It is recognized that currently available assays [...] 95% confidence interval of 99.78 to 99.96%. 21 Doctor Osteopathic: [id number] If is still suspected, please repeat test after 48 to 72 hours. 22 Doctor Osteopathic: [id number] 23 Serologic response to B. burgdorferi infection is not detected, but cannot rule out early infection during which low or undetectable antibody levels to B. burgdorferi may be present. If clinically indicated, a new serum specimen should be submitted in 7-14 days. Test Performed by: [address] [address] 24 RESULT: Results suggest past infection. ADDITIONAL INFORMATION [...] primary infection with EBV. Test Performed by: [address] [address] 25 Would you like an EBV if Monospot is Negative?: Y 26 Would you like an EBV if Monospot is Negative?: Y 27 Acute inflammation: >10.00 28 Because ethnic data is not always readily [...] 15-29 5 Kidney failure <15 (or dialysis) 29 2SST 30 Negative: < 0.8 Indeterminate: 0.8 - 0.9 Positive: > 0.9 The CDC recommends that a positive HCV antibody result be followed up with a HCV Nucleic Acid Amplification test (714793). 31 1 aptima 32 Calculate total score by adding the 3 individual bacterial vaginosis (BV) marker scores together. Total score is interpreted as follows: Total score 0-1: Indicates the absence of BV. Total score 2: Indeterminate for BV. Additional clinical data should be evaluated to establish a diagnosis. Total score 3-6: Indicates the presence of BV. This test was developed and its performance characteristics determined by [facility]. It has not been cleared or approved by the Food and Drug Administration. The FDA has determined that such clearance or approval is not necessary. 33 This test was developed and its performance characteristics determined by [facility]. It has not been cleared or approved by the Food and Drug Administration. The FDA has determined that such clearance or approval is not necessary. 34 NEGATIVE FOR INTRAEPITHELIAL LESION AND MALIGNANCY. 35 Satisfactory for evaluation. Endocervical and/or squamous metaplastic cells (endocervical component) are present. 36 Z12.4 37 Koby Swan, Combining Machine Operator (ASCP) 38 The Pap smear is a screening test designed to aid in the detection of premalignant and malignant conditions of the uterine cervix. It is not a diagnostic procedure and should not be used as the sole means of detecting cervical cancer. Both false-positive and false-negative reports do occur. 39 This liquid based ThinPrep(R) pap test was screened with the use of an image guided system. 40 The HPV DNA reflex criteria were not met with this specimen result therefore, no HPV testing was performed. 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 F42.9 Obsessive-compulsive disorder, unspecified Office Visit 05/20/2018 3:45p [facility] Bonny Lisa N39.0 Urinary tract Corey, POSTAL SERV[employer] SECTION[employer] C[employer] MANAGER infection, site not specified Office Visit 11/07/2017 5:50p [facility] Lencho Bravo R50.9 Fever, unspecified Ford Alicia N91.2 Amenorrhea, unspecified Office Visit 07/17/2017 7:15p [facility] Sonia Smith, R07.82 Intercostal pain [employer] SERVICE SE[employer] MANAGER R51 Headache Office Visit 03/14/2017 4:00p [facility] Bonny Lisa J01.90 Acute sinusitis, Nicole, POST[employer] SERVICE SE[employer] MANAGER unspecified Office Visit 01/03/2017 2:00p [facility] Bonny Lisa R50.9 Fever, Nicole, POSTAL SERVICE SE[employer] MANAGER unspecified H92.02 Otalgia, left ear Z71.6 Tobacco abuse counseling E28.2 Polycystic ovarian syndrome F31.9 Bipolar disorder, unspecified F17.210 Nicotine dependence, cigarettes, uncomplicated Office Visit 09/04/2016 9:30a [facility] Laura 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 abdominal pain F31.9 Bipolar disorder, unspecified R53.83 Other fatigue Office Visit 05/19/2016 9:30a [facility] Office Mayra Arpita, F31.9 Bipolar disorder, BOILER WATER TESTER unspecified Office Visit 02/28/2016 3:00p [facility] Office Rose Galindo, Z00.00 Encntr for general M.D. adult medical exam w/o abnormal findings F31.9 Bipolar disorder, unspecified Z11.3 Encntr screen for infections w sexl mode of transmiss Z23 Encounter for immunization Plan of Treatment 08/25/2018 - Virgilio Vanegas MDN94.3 Premenstrual tension syndromeAllComments:Medication Management Patient Understands medications she's taking? Yes No Are there Barriers to Adherence? Yes No Has the patient been asked about herbal supplements and therapies, and OTC meds? Yes No
[2018-09-22 18:41] VITALS: BP 100/58
--- NOTE | 2018-09-22 19:14 | UC ---
Complaint Female HPI - HPI Summary HPI Summary: 27 yo female with dysuria/urgency and frequenc x a week has a vaginal d/c and itching nof/c no n/v/d no abd or back pain - History Of Current Complaint Chief Complaint: UCGU Stated Complaint: BURNING URINATION Time Seen by Provider: 09/22/18 18:59 Hx Obtained From: Patient Hx Last Menstrual Period: 08/25/18 Onset/Duration: Gradual Onset, Lasting Days Timing: Constant Severity Initially: Mild Severity Currently: Mild Pain Intensity: 4 Pain Scale Used: 0-10 Numeric Character: Burning Aggravating Factor(s): Urination Associated Signs And Symptoms: Positive: Vaginal Discharge. Negative: Fever, Back Pain, Nausea, Vomiting(# Of Episodes =), Genital Swelling, Genital Blisters , Retained Foregin Body (Specify) - Allergies/Home Medications Allergies/Adverse Reactions: Allergies Allergy/AdvReac Type Severity Reaction Status Date / Time lamotrigine Allergy Itching Verified 09/22/18 18:41 bruno Allergy Itching Verified 09/22/18 18:41 Home Medications: Home Medications Acetylcysteine [Nac] 500 mg PO 09/22/18 [History] PMH/Surg Hx/FS Hx/Imm Hx Previously Healthy: Yes Psychological History: Bipolar Disorder - Surgical History Surgical History: None Surgery Procedure, Year, and Place: DENIES - Family History Known Family History: Positive: Hypertension, Non-Contributory Negative: Blood Disorder - Social History Alcohol Use: Rare Substance Use Type: None Smoking Status (MU): Light Every Day Tobacco Smoker Type: Cigarettes Amount Used/How Often: 5 cig./day Have You Smoked in the Last Year: No - Immunization History Most Recent Influenza Vaccination: 2011 Most Recent Tetanus Shot: [facility] Most Recent Pneumonia Vaccination: NONE Review of Systems All Other Systems Reviewed And Are Negative: Yes Constitutional: Positive: Negative Skin: Positive: Negative Eyes: Positive: Negative ENT: Positive: Negative Respiratory: Positive: Negative Cardiovascular: Positive: Negative Gastrointestinal: Positive: Negative Genitourinary: Positive: Dysuria, Hematuria - last wek, Frequency, Urgency, Vaginal/Penile Burning, Vaginal/Penile Itching Motor: Positive: Negative Neurovascular: Positive: Negative Musculoskeletal: Positive: Negative Neurological: Positive: Negative Psychological: Positive: Negative Physical Exam Triage Information Reviewed: Yes Appearance: Well-Appearing, No Pain Distress, Well-Nourished Vital Signs: Initial Vital Signs Temp 99.6 F 09/22/18 18:34 Pulse 89 09/22/18 18:34 Resp 18 09/22/18 18:34 BP 100/58 09/22/18 18:34 Pulse Ox 100 09/22/18 18:34 Vital Signs Reviewed: Yes Eyes: Positive: Conjunctiva Clear ENT: Positive: Hearing grossly normal. Negative: Nasal congestion, Nasal drainage, Trismus, Muffled voice, Hoarse voice Neck: Positive: Supple, Nontender, No Lymphadenopathy Respiratory: Positive: Lungs clear, Normal breath sounds, No respiratory distress Cardiovascular: Positive: RRR, No Murmur Abdomen Description: Positive: Nontender, No Organomegaly, Soft. Negative: CVA Tenderness (R), CVA Tenderness (L) Bowel Sounds: Positive: Present Pelvic Exam: Positive: External Exam Normal, No Masses, Discharge - white curdy. Negative: Active Bleeding, Mass, Tender w/ Cervical Motion, Tender Adnexa, Tender Uterus Musculoskeletal: Positive: ROM Intact, No Edema Neurological: Positive: Alert Psychological Exam: Normal Skin Exam: Normal Complaint Female Dx - Course Course Of Treatment: UA negative - Differential Dx/Diagnosis Provider Diagnosis: Yeast vaginitis Discharge - Sign-Out/Discharge Documenting (check all that apply): Patient Departure All imaging exams completed and their final reports reviewed: No Studies - Discharge Plan Condition: Stable Disposition: HOME Patient Education Materials: Yeast Infection (ED) Referrals: Rose Galindo MD [Primary Care Provider] - 2 Weeks (if not completely better) - Billing Disposition and Condition Condition: STABLE Disposition: Home
[2018-09-24 13:13] LABS: Neisseria gonorrhoeae (GC) RNA Negative (Negative)
[2018-09-24 13:33] LABS: Trichomonas vaginalis Result Negative (Negative)
== END 2018-09-22 19:49 | disposition home or self-care (01) ==
LOC: UCEAST 18:28
DX: B37.3 Candidiasis of vulva and vagina (principal); R35.0 Frequency of micturition; Z88.8 Allergy status to other drugs, medicaments and biological substances; Z91.018 Allergy to other foods; F17.210 Nicotine dependence, cigarettes, uncomplicated
CPT/HCPCS: 81003; 84702; 87480; 87491; 87510; 87591; 87661; 99212; G0463

== ENCOUNTER 2019-04-01 15:09 | Emergency (ER) | payer BC ==
--- NOTE | 2019-04-01 15:12 | UC ---
Throat Pain/Nasal Candido HPI - HPI Summary HPI Summary: 28 yo female presents with flu-like symptoms. She tells me that 1 week ago she developed sudden onset of fatigue, body aches, dry cough, sore throat, and headache. A few days later developed nausea and diarrhea that lasted 2 days and has since resolved. She is still feeling fatigued, body aches, and sore throat. She has been taking OTC zinc and tylenol with no relief. She did not get a flu shot this year. 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 Denies sinus symptoms, SOB, chest pain, abdominal pain, n/v/d, dysuria, back pain. - History of Current Complaint Stated Complaint: SORE THROAT Time Seen by Provider: 04/01/19 15:11 Hx Obtained From: Patient Hx Last Menstrual Period: 08/25/18 Onset/Duration: Sudden Onset Severity: Moderate Pain Intensity: 5 Pain Scale Used: 0-10 Numeric - Allergies/Home Medications Allergies/Adverse Reactions: Allergies Allergy/AdvReac Type Severity Reaction Status Date / Time lamotrigine Allergy Itching Verified 04/01/19 15:20 bruno Allergy Itching Verified 04/01/19 15:20 Home Medications: Home Medications Zinc Gluconate-Zinc Picolinate [Zinc] 30 mg PO DAILY 04/01/19 [History Confirmed 04/01/19] PMH/Surg Hx/FS Hx/Imm Hx Psychological History: Bipolar Disorder - Surgical History Surgical History: None Surgery Procedure, Year, and Place: DENIES - Family History Known Family History: Positive: Hypertension Negative: Blood Disorder - Social History Lives: With Family Alcohol Use: Rare Substance Use Type: None Smoking Status (MU): Light Every Day Tobacco Smoker Type: Cigarettes Amount Used/How Often: 5 cig./day Have You Smoked in the Last Year: No - Immunization History Most Recent Influenza Vaccination: 2011 Most Recent Tetanus Shot: [facility] Most Recent Pneumonia Vaccination: NONE Review of Systems All Other Systems Reviewed And Are Negative: No Constitutional: Positive: Fatigue, Other - Body aches Skin: Positive: Negative Eyes: Positive: Negative ENT: Positive: Sore Throat Respiratory: Positive: Negative Cardiovascular: Positive: Negative Gastrointestinal: Positive: Diarrhea - resolved, Nausea - resolved Musculoskeletal: Positive: Negative Neurological: Positive: Negative Psychological: Positive: Negative Physical Exam - Summary Physical Exam Summary: GENERAL: NAD. WDWN. No pain distress. SKIN: No rashes, sores, lesions, or open wounds. HEENT: Head: AT/NC Eyes: EOM intact. Conjunctiva clear without inflammation or discharge. Ears: Hearing grossly normal. TMs intact, no bulging, erythema, or edema. Nose: Nasal mucosa pink and moist. NTTP maxillary and frontal sinus. Throat: Posterior oropharynx without exudates, erythema, or tonsillar enlargement. Uvula midline. NECK: Supple. Shotty anterior cervical LAD. FROM without pain. No meningismus CHEST: CTAB. No r/r/w. No accessory muscle use. Breathing comfortably and in no distress. CV: RRR. Pulses intact. Cap refill <2seconds NEURO: Alert. PSYCH: Age appropriate behavior. Triage Information Reviewed: Yes Vital Signs: Vital Signs: Temp Pulse Resp BP Pulse Ox 100.2 F 85 12 115/61 100 04/01/19 15:13 04/01/19 15:13 04/01/19 15:13 04/01/19 15:13 04/01/19 15:13 Laboratory Tests 04/01/19 04/01/19 15:29 15:31 Influenza A (Rapid) Negative Influenza B (Rapid) Negative Group A Strep Rapid Negative Vital Signs Reviewed: Yes Throat Pain/Nasal Course/Dx - Course Course Of Treatment: POC strep and flu negative. Here symptoms seem to align best with influenza as many cases of the flu have presented identical to her course, but given negative flu test will further eval. Will draw for CBC, CMP, and mono. 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 Continue supportive OTC care - Differential Dx/Diagnosis Provider Diagnosis: Pharyngitis, Fatigue Discharge ED - Sign-Out/Discharge Documenting (check all that apply): Patient Departure All imaging exams completed and their final reports reviewed: No Studies - Discharge Plan Condition: Stable Disposition: HOME Prescriptions: Azithromycin TAB* [Zithromax TAB (Z-CM) 250 mg #6 tabs] 2 tab PO .TODAY, THEN 1 DAILY #1 cm Patient Education Materials: Pharyngitis (ED), Influenza (ED) Referrals: Rose Galindo MD [Primary Care Provider] - Additional Instructions: -- Rest until the flu is fully resolved, especially if the illness has been severe. -- Fluids Drink enough fluids so that you do not become dehydrated. One way to parking garage manager if you are drinking enough is to look at the color of your urine. Normally, urine should be light yellow to nearly colorless. If you are drinking enough, you should pass urine every three to five hours. -- Acetaminophen (sample brand name: Tylenol) can relieve fever, headache, and muscle aches. Aspirin and medicines that include aspirin (eg, bismuth subsalicylate [sample brand name: Pepto-Bismol]) are not recommended for children under 18 because aspirin can lead to a serious disease called Amita syndrome. -- Cough medicines are not usually helpful; cough usually resolves without treatment. - Billing Disposition and Condition Condition: STABLE Disposition: Home
[2019-04-01 15:19] VITALS: BP 115/61
[2019-04-01 15:43] LABS: Influenza A Molecular NEGATIVE (Negative); Influenza B Molecular NEGATIVE (Negative)
[2019-04-01 18:39] LABS: ABS Eosinophils 0.1 10^3/ul (0-0.6); ABS Lymphocytes 1.7 10^3/ul (1.0-4.8); ABS Monocytes 0.5 10^3/ul (0-0.8); Eosinophil % 1.5 %; Hematocrit 36 % (35-47); Hemoglobin 12.8 g/dL (12.0-16.0); Lymphocyte % 20.6 %; Mean Corpuscular HGB Conc 35 g/dL (31-36); Mean Corpuscular Hemoglobin 32 pg (27-31); Mean Corpuscular Volume 91 fL (80-97); Mean Platelet Volume 8.2 fL (7.4-10.4); Platelet Count 287 10^3/uL (150-450); Red Blood Count 3.97 10^6 /uL (3.70-4.87); Red Cell Distribution Width 12 % (10-15); White Blood Count 8.4 10^3/uL (3.5-10.8)
[2019-04-01 18:46] LABS: Albumin 4.7 g/dL (3.2-5.2); Calcium 9.6 mg/dL (8.6-10.3); Potassium 3.9 mmol/L (3.5-5.0); Total Bilirubin 0.3 mg/dL (0.2-1.0)
[2019-04-01 18:52] LABS: BUN/Creatinine Ratio 17.5 (8-20); EGFR African American 104.1 (>60); Globulin 2.4 g/dL (2-4); Total Protein 7.1 g/dL (6.4-8.9)
== END 2019-04-01 16:19 | disposition home or self-care (01) ==
LOC: UCEAST 15:09
DX: J02.9 Acute pharyngitis, unspecified (principal); R53.83 Other fatigue; F31.9 Bipolar disorder, unspecified; R19.7 Diarrhea, unspecified; F17.210 Nicotine dependence, cigarettes, uncomplicated; Z91.018 Allergy to other foods; Z88.8 Allergy status to other drugs, medicaments and biological substances
CPT/HCPCS: 36415; 80053; 85025; 86308; 87651; 99212; G0463